=== PATIENT | female | born 1945 | race Caucasian/White ===

== ENCOUNTER → 2017-04-07 | Outpatient (CLI) | payer OTHER ==
[2017-04-07 15:42] LABS: BASO % 0.1 %; BASO ABS # 0.01 K/uL (0-0.2); COMPLETE YES; EOS % 0.3 %; IG% 0.1 %; LYMPH % 22.5 %; LYMPH ABS # 1.63 K/uL (1.2-3.4); MEAN CELL VOLUME 99.7 fL (80-100); MEAN CORPUSCULAR HEMOGLOBIN 34.1 pg (25-34); MEAN CORPUSCULAR HGB CONC 34.2 g/dl (32-36); MEAN PLATELET VOLUME 9.5 fL (7.4-10.4); MONO % 6.5 %; NEUT % 70.5 %; PLATELET COUNT 299 K/uL (130-400); RED BLOOD COUNT 3.81 M/uL (4.2-5.4); WHITE BLOOD COUNT 7.26 K/uL (4.8-10.8)
[2017-04-07 16:03] LABS: ALT/SGPT 35 U/L (12-78); AST/SGOT 45 U/L (15-37); BLOOD UREA NITROGEN 17 mg/dl (7-18); BUN/CREATININE RATIO 15.8 (10-20); CALCIUM 7.9 mg/dl (8.5-10.1); CARBON DIOXIDE 24 mmol/L (21-32); CHLORIDE 111 mmol/L (98-107); GLUCOSE 90 mg/dl (70-99); SODIUM 144 mmol/L (136-145)
[2017-04-07 16:06] LABS: CHOLESTEROL 188 mg/dl (0-200); CHOLESTEROL/HDL RATIO 2.7; HDL CHOLESTEROL 70 mg/dl; LDL CHOLESTEROL CALCULATED 82 mg/dl; TRIGLYCERIDES 180 mg/dl (0-150); VERY LOW DENSITY LIPOPROT CALC 36 mg/dl
== END | disposition home or self-care (01) ==
LOC: C.LAB1850 14:37
PROVIDERS: ATTEND Internal Medicine
DX: E78.00 Pure hypercholesterolemia, unspecified (principal)

== ENCOUNTER 2018-02-02 09:13 | Emergency (ER) | payer OTHER ==
[~2018-02-02] VITALS: Ht 160 cm; Wt 47.5 kg
[2018-02-02 09:21] VITALS: TEMP 36.7; Ht 160 cm; Wt 47.5 kg
--- NOTE | 2018-02-02 10:22 | DIAGNOSTIC IMAGING REPORT ---
L FOOT MIN 3 VIEWS ROUTINE CLINICAL HISTORY: Bilateral foot pain and swelling. COMPARISON: None FINDINGS: Alignment of the left foot is anatomic. No acute fracture is identified. There is minimal posterior calcaneal spurring. Tarsometatarsal joints are intact. 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 No erosions are identified. IMPRESSION: 1. No acute fracture or dislocation within the left foot. 2. 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 Electronically signed by: Chin Matos M.D. 02/02/2018 10:21 AM Dictated Date/Time: 02/02/2018 10:19 AM
--- NOTE | 2018-02-02 10:23 | DIAGNOSTIC IMAGING REPORT ---
R FOOT MIN 3 VIEWS ROUTINE CLINICAL HISTORY: Bilateral foot pain and swelling. COMPARISON: None FINDINGS: Alignment of the right foot is anatomic. Tarsometatarsal joints are intact. No fracture or suspicious lesion is present. There is mild osteoarthritis within multiple articulations of the right foot, most pronounced the right first metatarsophalangeal joint. IMPRESSION: 1. No acute fracture or dislocation within the right foot. 2. Mild osteoarthritis within multiple articulations of the right foot. Electronically signed by: Chin Matos M.D. 02/02/2018 10:22 AM Dictated Date/Time: 02/02/2018 10:21 AM
[2018-02-02 10:31] LABS: BASO % 0.2 %; BASO ABS # 0.02 K/uL (0-0.2); EOS % 0.6 %; EOS ABS # 0.05 K/uL (0-0.5); HEMATOCRIT 38.1 % (37-47); HEMOGLOBIN 13.4 g/dL (12.0-16.0); IG# 0.02 K/uL (0.00-0.02); LYMPH % 15.9 %; LYMPH ABS # 1.31 K/uL (1.2-3.4); MEAN CORPUSCULAR HEMOGLOBIN 36.2 pg (25-34); MEAN CORPUSCULAR HGB CONC 35.2 g/dl (32-36); MEAN PLATELET VOLUME 9.3 fL (7.4-10.4); MONO ABS # 0.58 K/uL (0.11-0.59); NEUT % 76.1 %; NEUT ABS # 6.28 K/uL (1.4-6.5); PLATELET COUNT 283 K/uL (130-400); RED CELL DISTRIBUTION WIDTH CV 13.4 % (11.5-14.5); RED CELL DISTRIBUTION WIDTH SD 50.6 fL (36.4-46.3); WHITE BLOOD COUNT 8.26 K/uL (4.8-10.8)
[2018-02-02 10:52] LABS: ALBUMIN 3.3 gm/dl (3.4-5.0); CALCIUM 7.8 mg/dl (8.5-10.1); CREATININE 0.94 mg/dl (0.60-1.20); POTASSIUM 4.2 mmol/L (3.5-5.1); TOTAL PROTEIN 6.8 gm/dl (6.4-8.2)
[2018-02-02] MEDS ORDERED: LZL/125 PO (10:57)
[2018-02-02] MEDS ORDERED: LISI40TA PO (10:57)
[2018-02-02] MEDS ORDERED: LSN20 PO (10:59)
[2018-02-02] MEDS ORDERED: SIMV40TA2 PO (10:59)
--- NOTE | 2018-02-02 11:08 | EMERGENCY ROOM VISIT NOTE ---
History Report prepared by Andrew: Gage Riley Under the Supervision of: Dr. Roxy Cardoso D.O. First contact with patient: 09:27 Chief Complaint: FOOT PAIN Stated Complaint: LEFT FOOT PAIN History of Present Illness The patient is a 72 year old female who presents to the Emergency Room with complaints of worsening right left foot pain and swelling beginning yesterday. She states that her right foot was painful and swollen two days ago, but resolved with ice 1 day later. She states that she noticed her symptoms at the end of the day each night. The patient has similar symptoms in the past associated with increased activity. She notes that she has been on her feet a lot recently. She denies any fevers, chills, joint pain, numbness, or tingling. The patient denies medication changes. She reports feeling a bit nauseous. Her brother has a history of gout. The patient denies recent travel. She denies change in shoes. She denies new soaps or detergents. The patient denies recent trauma or injury. She has no known history of Lyme disease. Source of History: patient Onset: Yesterday Position: foot (left) Quality: other (pain and swelling) Timing: worsening Associated Symptoms: + nausea, No fevers, No chills, No numbness Note: Negative: tingling, joint pain. Review of Systems See HPI for pertinent positives & negatives. A total of 10 systems reviewed and were otherwise negative. Past Medical & Surgical Medical Problems: (1) HTN (hypertension) (2) Ovarian cancer Family History No pertinent family history stated. Social History Smoking Status: Current Every Day Smoker Marital Status: Occupation Status: employed Current/Historical Medications Scheduled Cephalexin Monohydrate (Keflex), 500 MG PO QID Indapamide (Lozol), 1.25 MG PO DAILY Lisinopril (Lisinopril), 20 MG PO DAILY Simvastatin (Zocor), 40 MG PO QPM Allergies Coded Allergies: Erythromycin (Verified Allergy, Unknown, 02/02/18) Aspirin (Verified Adverse Reaction, Mild, STOMACH UPSET, 02/02/18) Physical Exam Vital Signs Date Time Temp Pulse Resp B/P (MAP) Pulse Ox O2 Delivery O2 Flow Rate FiO2 02/02/18 12:06 96 20 136/81 99 02/02/18 09:21 36.7 87 18 160/97 100 Room Air Physical Exam GENERAL: alert, well appearing, well nourished, no distress, non-toxic EYE EXAM: normal conjunctiva, PERRL and EOM's grossly intact OROPHARYNX: no exudate, no erythema, lips, buccal mucosa, and tongue normal and mucous membranes are moist NECK: supple, no nuchal rigidity, no adenopathy, non-tender LUNGS: Clear to auscultation. Normal chest wall mechanics HEART: no murmurs, S1 normal and S2 normal ABDOMEN: abdomen soft, non-tender, normo-active bowel sounds, no masses, no rebound or guarding. BACK: Back is symmetrical on inspection and there is no deformity, no midline tenderness, no CVA tenderness. SKIN: no rashes and no bruising UPPER EXTREMITIES: upper extremities are grossly normal. LOWER EXTREMITIES: mildly edematous and erythematous left foot/toes, predominantly dorsal. Normal pulses. No ecchymosis. No deformities. No joint effusions. Right foot appears normal. Rest of lower extremities appear normal. NEURO EXAM: Normal sensorium, cranial nerves II-XII grossly intact, normal speech, no gross weakness of arms, no gross weakness of legs. Medical Decision & Procedures ER Provider Diagnostic Interpretation: Radiology results have been interpreted by the radiologist and reviewed by me. L FOOT MIN 3 VIEWS ROUTINE FINDINGS: Alignment of the left foot is anatomic. No acute fracture is identified. There is minimal posterior calcaneal spurring. Tarsometatarsal joints are intact. 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 No erosions are identified. IMPRESSION: 1. No acute fracture or dislocation within the left foot. 2. 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 Electronically signed by: Chin Matos M.D. 02/02/2018 10:21 AM R FOOT MIN 3 VIEWS ROUTINE FINDINGS: Alignment of the right foot is anatomic. Tarsometatarsal joints are intact. No fracture or suspicious lesion is present. There is mild osteoarthritis within multiple articulations of the right foot, most pronounced the right first metatarsophalangeal joint. IMPRESSION: 1. No acute fracture or dislocation within the right foot. 2. Mild osteoarthritis within multiple articulations of the right foot. Electronically signed by: Chin Matos M.D. 02/02/2018 10:22 AM Laboratory Results 02/02/18 10:20 Red Blood Count 3.70, Mean Corpuscular Volume 103.0, Mean Corpuscular Hemoglobin 36.2, Mean Corpuscular Hemoglobin Concent 35.2, Mean Platelet Volume 9.3, Neutrophils (%) (Auto) 76.1, Lymphocytes (%) (Auto) 15.9, Monocytes (%) ( Auto) 7.0, Eosinophils (%) (Auto) 0.6, Basophils (%) (Auto) 0.2, Neutrophils # ( Auto) 6.28, Lymphocytes # (Auto) 1.31, Monocytes # (Auto) 0.58, Eosinophils # ( Auto) 0.05, Basophils # (Auto) 0.02 02/02/18 10:20 Test 02/02/18 10:20 White Blood Count 8.26 K/uL (4.8-10.8) Red Blood Count 3.70 M/uL (4.2-5.4) Hemoglobin 13.4 g/dL (12.0-16.0) Hematocrit 38.1 % (37-47) Mean Corpuscular Volume 103.0 fL (80-100) Mean Corpuscular Hemoglobin 36.2 pg (25-34) Mean Corpuscular Hemoglobin Concent 35.2 g/dl (32-36) Platelet Count 283 K/uL (130-400) Mean Platelet Volume 9.3 fL (7.4-10.4) Neutrophils (%) (Auto) 76.1 % Lymphocytes (%) (Auto) 15.9 % Monocytes (%) (Auto) 7.0 % Eosinophils (%) (Auto) 0.6 % Basophils (%) (Auto) 0.2 % Neutrophils # (Auto) 6.28 K/uL (1.4-6.5) Lymphocytes # (Auto) 1.31 K/uL (1.2-3.4) Monocytes # (Auto) 0.58 K/uL (0.11-0.59) Eosinophils # (Auto) 0.05 K/uL (0-0.5) Basophils # (Auto) 0.02 K/uL (0-0.2) RDW Standard Deviation 50.6 fL (36.4-46.3) RDW Coefficient of Variation 13.4 % (11.5-14.5) Immature Granulocyte % (Auto) 0.2 % Immature Granulocyte # (Auto) 0.02 K/uL (0.00-0.02) Erythrocyte Sedimentation Rate 9 mm/hr (0-21) Anion Gap 7.0 mmol/L (3-11) Est Creatinine Clear Calc Drug Dose 41.8 ml/min Estimated GFR () 71.2 Estimated GFR (Non- 61.5 BUN/Creatinine Ratio 17.0 (10-20) Uric Acid 8.0 mg/dl (2.6-7.2) Calcium Level 7.8 mg/dl (8.5-10.1) Total Bilirubin 0.5 mg/dl (0.2-1) Aspartate Amino Transf (AST/SGOT) 42 U/L (15-37) Alanine Aminotransferase (ALT/SGPT) 38 U/L (12-78) Alkaline Phosphatase 118 U/L (45-117) Total Protein 6.8 gm/dl (6.4-8.2) Albumin 3.3 gm/dl (3.4-5.0) Globulin 3.5 gm/dl (2.5-4.0) Albumin/Globulin Ratio 0.9 (0.9-2) Lyme Disease IgG Antibody NEG (NEG) Lyme Disease IgM Antibody NEG (NEG) Laboratory results per my review. ED Course 09: The patient was evaluated in room A9B. A complete history and physical exam was performed. 1100: Upon reevaluation, the patient is feeling better. I discussed the findings and the treatment plan with the patient. She verbalizes agreement and understanding. The patient was discharged home. Medical Decision Differential diagnosis: Etiologies such as gout, fracture, dislocation, neurovascular compromise, compartment syndrome, soft tissue injury, as well as others were entertained. Discussed with patient atypical nature of presentation given recent involvement of the opposite foot similar to pattern today. No leukocytosis or elevated sed rate. Mild elevation of patient's uric acid however no prior history of gout. Renal function otherwise normal. Appearance of dorsal left foot not consistent with cellulitis, area outlined as a precaution, and patient given prescription for Keflex as a precaution in case condition worsen or she develop fevers. Patient declined pain medication or gout medication. Discussed dietary modification in lieu of consideration of gout. Discussed symptoms to watch and return for, need for close follow-up, use of anti-inflammatories for pain and as a treatment for gout. Discussed adequate hydration with water, avoidance of taking anti-inflammatories on an empty stomach. Patient with no other systemic symptoms. Patient well-appearing at time of discharge, comfortable with plan, all questions answered at bedside. Medication Reconcilliation Current Medication List: was personally reviewed by me Blood Pressure Screening Patient's blood pressure: Elevated blood pressure Blood pressure disposition: Referred to PCP Impression Primary Impression: Foot pain Scribe Attestation The scribe's documentation has been prepared under my direction and personally reviewed by me in its entirety. I confirm that the note above accurately reflects all work, treatment, procedures, and medical decision making performed by me. Departure Information Dispostion Home / Self-Care Prescriptions Cephalexin Monohydrate (Keflex) 500 Mg Cap 500 MG PO QID, #28 CAP Prov: Roxy Cardoso, DO 02/02/18 Referrals Horacio Parham M.D. (PCP) Patient Instructions My [facility] Additional Instructions Please have your family doctor recheck your feet by the end of the week. You may use anti-inflammatories to help with pain and swelling, these also help with this is the evolution of gout. Do not take anti-inflammatories on an empty stomach and make sure you are drinking plenty of water. Please continue your other regular medications as prescribed. If you have increasing pain or swelling, worsening redness, redness streaking into the ankle or leg, develop fevers or chills, dizziness, nausea or vomiting, please return the emergency room. If you feel the area is not improved over the next 24 hours, please start the antibiotic. Please avoid foods which are rich or high fat. Please discuss possible gout with your regular doctor. Please try to elevate the leg at rest and avoid prolonged standing or strenuous activity until the area is improved. Problem Qualifiers Primary Impression: Foot pain Laterality: left Qualified Codes: M79.672 - Pain in left foot
[2018-02-02] MEDS ORDERED: CEPH500C PO (11:09)
[2018-02-02 12:06] VITALS: BP 136/81; PULSE 96; O2SAT 99
== END 2018-02-02 11:47 | disposition home or self-care (01) ==
LOC: C.EDB 09:14 → C.EDA 11:47
DX: M79.672 Pain in left foot (principal); M79.671 Pain in right foot; R60.0 Localized edema; I10 Essential (primary) hypertension; Z85.43 Personal history of malignant neoplasm of ovary; F17.200 Nicotine dependence, unspecified, uncomplicated; Z88.1 Allergy status to other antibiotic agents; Z88.6 Allergy status to analgesic agent

== ENCOUNTER 2023-06-16 20:53 | Observation (INO) ==
[2023-06-16] MEDS ORDERED: ENOXAPARIN INJ 30 MG/0.3 ML SYR SQ SCH (21:00)
[2023-06-16] MEDS ORDERED: diphenhydrAMINE 50 MG/ML VIAL IV STA (21:05)
[2023-06-16] MEDS ORDERED: FAMOTIDINE 20MG IV PUSH 20 MG/5 ML SYR IV STA (21:05)
[2023-06-16] MEDS ORDERED: SODIUM CHLORIDE 0.9% 1000ML 500 ML IV ONE (21:05)
[2023-06-16] MEDS ORDERED: methylPREDNISolone 125 MG/2 ML VIAL IV STA (21:05)
[2023-06-16] MEDS ORDERED: SODIUM CHLORIDE 0.9% 250 ML IV PRN (21:08)
[2023-06-16] MEDS ORDERED: TRANEXAMIC ACID / 0.7% NACL 1,000 MG/100 ML BAG IV STA (21:09)
[2023-06-16] MEDS ORDERED: EPINEPHrine INJ 1 MG/ML AMP IM STA (21:12)
[2023-06-16 21:26] LABS: Basophils # (auto) 0.02 K/uL (0-0.2); Basophils % (auto) 0.3 %; Eosinophils # (auto) 0.09 K/uL (0-0.50); Eosinophils % (auto) 1.4 %; Hematocrit (blood only) 36.8 % (37.0-47.0); Hemoglobin 12.3 g/dl (12.0-16.0); Immature Granulocytes # (auto) 0.01 K/uL (0.01-0.20); Immature Granulocytes % (auto) 0.2 %; Lymphocytes # (auto) 2.75 K/uL (1.2-3.4); Lymphocytes % (auto) 41.7 %; Mean Corpuscular Hemoglobin 32.7 pg (25.0-34.0); Mean Corpuscular Hgb Conc 33.4 g/dL (32.0-36.0); Mean Corpuscular Volume 97.9 fL (80.0-100.0); Mean Platelet Volume 8.9 fL (9.4-12.4); Monocytes # (auto) 0.54 K/uL (0.11-0.59); Monocytes % (auto) 8.2 %; Neutrophils # (auto) 3.18 K/uL (1.40-6.50); Neutrophils % (auto) 48.2 %; Platelet Count 315 K/uL (130-400); RDW Standard Deviation 46.3 fL (36.4-46.3); Red Blood Count 3.76 M/uL (4.20-5.40); White Blood Count 6.59 K/ul (4.8-10.8)
--- NOTE | 2023-06-16 21:39 | Anesthesiology Progress Note ---
Date of Service June 16, 2023 Assessment & Plan (1) Edema of face: Present on Admission?: Yes Plan spoke with icu and they will be admitting her over night - agree with watching for now as she is not in distress and it does appear to be lessening. will follow along. Admission and Anticipated Discharge Date Admission Date: 06/16/23 Subjective asked to see patient in ED with facial swelling - able to talk but slurred - breathing well, O2 sat 100% - did receive steroid and antihistamine and IM epi and is getting TXA and will be getting FFP - son believes her face and neck looks less full - she feels tired and chilly but breathing fine. they say she has had multiple episodes tho not this bad and have always been self limiting. Review of Systems Review of Systems: All systems reviewed & are unremarkable except as noted in Subjective Physical Exam Vital Signs: Last Vital Signs Temp 36.4 C L 06/16/23 20:56 Pulse 97 H 06/16/23 21:13 Resp 20 06/16/23 20:56 BP 227/129 H 06/16/23 20:56 Pulse Ox 99 06/16/23 20:56 O2 Del Method Room Air 06/16/23 20:56 Constitutional: no acute distress ENMT: Nose: + facial edema Mouth: + tongue abnormality Mallampati Class: III (due to tongue swellingright more than left) Neck: + anterior neck swelling (much more to right than left - appears slightly less than when first seen) Respiratory: normal respiratory effort Cardiovascular: Rate/Rhythm: regular rate and regular rhythm
--- NOTE | 2023-06-16 21:46 | Emergency Department Note ---
History of Present Illness General Chief complaint: Allergic Reaction Stated complaint: SWOLLEN NECK, ?ALLERGIC REACTION Time Seen by Provider: 06/16/23 21:00 History of Present Illness Provider complaint: Lip swelling neck swelling Onset (ago): hour(s) 2 78-year-old female presents emergency department with a lip and neck swelling. Patient states her symptoms began 2 hours ago after eating [place] food. She reports no difficulty breathing. No difficulty swallowing. Family member at bedside states this happens every month or 2 to her and usually resolves. No chest pain or difficulty breathing. 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 Surgical History H/O hysterectomy with oophorectomy ovarian cancer with removal of tumor (stage 4) Family History Father Heart disease Mother Stroke Other Allergies No family history of bleeding disorder Denies family history of Hearing loss Cancer Asthma Social History Smoking Status: Current every day smoker Tobacco Type: Cigarettes Age Started Using Tobacco: 20; packs per day: 1; Cigarettes Per Day: 4; Do You Dip or Chew Tobacco: No; Hx Alcohol Use: Yes Alcohol type: wine Alcohol Intake Frequency: 4 or More x per/Week Hx Substance Use: No Preferred Language: Sudanese Communication Ability: Effective Mail Order Sorter Required: No Beliefs That Will Affect Care: None marital status: / Current Living Situation: Family current occupational status: employed 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 How many Children do You have: 2 Other Information That Helps Us Care for You: No Feels Safe at Home: Yes Safety Concerns: Feels Safe At This Time Assistive Devices: Glasses and Hearing Aid - Right Physical Exam Vital Signs Vital Signs - 24 hr 06/16/23 20:56 06/16/23 21:13 06/16/23 21:40 Temperature 36.4 C L Temperature Source Temporal Artery Scan Pulse Rate 94 H 97 H Pulse Rate [Finger] 93 H Pulse Rate from SpO2 Sensor Pulse Rhythm Regular Pulse Strength Normal Respiratory Rate 20 22 Respiratory Effort / Characteristics Non-Labored Spontaneous Respiratory Depth Normal Blood Pressure 227/129 H Blood Pressure [Right Arm] 215/116 H Blood Pressure Mean 161 Blood Pressure Mean [Right Arm] 149 Pulse Oximetry 99 100 Oxygen Delivery Method Room Air Room Air Sepsis Recent Fever Within 48 Hours No Sepsis New/Unexplained Change in Mental Status N/A Sepsis Action Taken by Nursing No Action Required 06/16/23 21:50 06/16/23 21:30 06/16/23 21:20 Temperature Temperature Source Pulse Rate 97 H Pulse Rate [Finger] 91 H 94 H Pulse Rate from SpO2 Sensor Pulse Rhythm Pulse Strength Respiratory Rate 20 18 18 Respiratory Effort / Characteristics Respiratory Depth Blood Pressure 205/111 H Blood Pressure [Right Arm] 202/112 H 225/134 H Blood Pressure Mean 142 Blood Pressure Mean [Right Arm] 142 164 Pulse Oximetry 99 99 100 Oxygen Delivery Method Room Air Room Air Sepsis Recent Fever Within 48 Hours Sepsis New/Unexplained Change in Mental Status Sepsis Action Taken by Nursing 06/16/23 21:50 06/16/23 22:00 06/16/23 22:10 Temperature 36.8 C Temperature Source Oral Pulse Rate Pulse Rate [Finger] 90 93 H 88 Pulse Rate from SpO2 Sensor Pulse Rhythm Pulse Strength Respiratory Rate 16 16 16 Respiratory Effort / Characteristics Respiratory Depth Blood Pressure Blood Pressure [Right Arm] 205/111 H 195/101 H 181/110 H Blood Pressure Mean Blood Pressure Mean [Right Arm] 142 132 133 Pulse Oximetry 100 100 99 Oxygen Delivery Method Room Air Room Air Room Air Sepsis Recent Fever Within 48 Hours Sepsis New/Unexplained Change in Mental Status Sepsis Action Taken by Nursing 06/16/23 21:14 06/16/23 21:21 06/16/23 21:21 Temperature Temperature Source Pulse Rate 97 H 97 H Pulse Rate [Finger] Pulse Rate from SpO2 Sensor 100 H Pulse Rhythm Pulse Strength Respiratory Rate 18 17 Respiratory Effort / Characteristics Respiratory Depth Blood Pressure 225/134 H Blood Pressure [Right Arm] Blood Pressure Mean 164 Blood Pressure Mean [Right Arm] Pulse Oximetry 100 Oxygen Delivery Method Sepsis Recent Fever Within 48 Hours Sepsis New/Unexplained Change in Mental Status Sepsis Action Taken by Nursing 06/16/23 21:30 06/16/23 21:30 06/16/23 21:40 Temperature Temperature Source Pulse Rate 93 H Pulse Rate [Finger] Pulse Rate from SpO2 Sensor 92 H Pulse Rhythm Pulse Strength Respiratory Rate 17 Respiratory Effort / Characteristics Respiratory Depth Blood Pressure 202/112 H 215/116 H Blood Pressure [Right Arm] Blood Pressure Mean 142 149 Blood Pressure Mean [Right Arm] Pulse Oximetry 100 Oxygen Delivery Method Sepsis Recent Fever Within 48 Hours Sepsis New/Unexplained Change in Mental Status Sepsis Action Taken by Nursing 06/16/23 21:40 06/16/23 21:50 06/16/23 21:50 Temperature Temperature Source Pulse Rate 98 H 90 Pulse Rate [Finger] Pulse Rate from SpO2 Sensor 96 H 92 H Pulse Rhythm Pulse Strength Respiratory Rate 20 15 Respiratory Effort / Characteristics Respiratory Depth Blood Pressure 205/111 H Blood Pressure [Right Arm] Blood Pressure Mean 142 Blood Pressure Mean [Right Arm] Pulse Oximetry 100 100 Oxygen Delivery Method Sepsis Recent Fever Within 48 Hours Sepsis New/Unexplained Change in Mental Status Sepsis Action Taken by Nursing 06/16/23 22:00 06/16/23 22:00 06/16/23 22:10 Temperature Temperature Source Pulse Rate 95 H Pulse Rate [Finger] Pulse Rate from SpO2 Sensor 93 H Pulse Rhythm Pulse Strength Respiratory Rate 14 Respiratory Effort / Characteristics Respiratory Depth Blood Pressure 195/101 H 181/110 H Blood Pressure [Right Arm] Blood Pressure Mean 132 133 Blood Pressure Mean [Right Arm] Pulse Oximetry 99 Oxygen Delivery Method Sepsis Recent Fever Within 48 Hours Sepsis New/Unexplained Change in Mental Status Sepsis Action Taken by Nursing 06/16/23 22:10 Temperature Temperature Source Pulse Rate 87 Pulse Rate [Finger] Pulse Rate from SpO2 Sensor 88 Pulse Rhythm Pulse Strength Respiratory Rate 13 Respiratory Effort / Characteristics Respiratory Depth Blood Pressure Blood Pressure [Right Arm] Blood Pressure Mean Blood Pressure Mean [Right Arm] Pulse Oximetry 99 Oxygen Delivery Method Sepsis Recent Fever Within 48 Hours Sepsis New/Unexplained Change in Mental Status Sepsis Action Taken by Nursing Physical Exam HENT: Exam performed. -Head: Normocephalic and atraumatic. -Mouth/Throat: Right lower lip swelling. Right tongue swelling. Submental swelling. EYES: Conjunctivae and EOM are normal. Pupils are equal, round, and reactive to light. Right eye exhibits no discharge. Left eye exhibits no discharge. No scleral icterus. NECK: Fullness of the right neck. CV: Normal rate, regular rhythm, normal heart sounds and intact distal pulses. There is no peripheral edema. Palpable radial pulses bue. PULM/CHEST: Effort normal and breath sounds normal. No respiratory distress. No stridor. She has no wheezes. She has no rales. Course Course 2100: The patient was evaluated in room B7. A complete history and physical exam was performed Cardiac monitoring: An order was placed for continuous cardiac monitoring. The monitor shows a rate of 90 with sinus rhythm interpreted by me Concern for angioedema given the patient's right-sided tongue lip and neck swelling. Less concern for allergic reaction given no rash or hives. No stridor or wheezing. Patient will be moved to resuscitation bay. We will attempt to treat the patient with Solu-Medrol 125 mg IV, Pepcid 20 mg IV, Benadryl 50 mg IV, TXA 1 g. Patient will be moved to resuscitation bay.We will contact anesthesia for possible earlier intubation. FFP 2 units will also be ordered for the patient. 2107: Spoke with Dr. Kaye anesthesia who states he will be down to evaluate the patient. 2111: Patient states it feels like her throat is swelling. Patient will be given epinephrine 0.3 mg IM in case there is any component of allergic reaction. 2127: Dr. Kaye at bedside. Lip swelling has improved. 2137: Swelling of the neck and lip have improved. There is still swelling of her tongue. 7: Patient will be admitted to the ICU. [facility], Dr. Vargas Castillo at bedside. Patient is improving. We will hold off on intubation at this time. 2207: FFP hanging tongue swelling is improving. 5: Vital signs stable. Tongue swelling improving. Administered Medications Enoxaparin Sodium (Enoxaparin Inj 30 Mg/0.3 Ml Syr) 30 mg SQ Q24H VANDANA Stop: 07/16/23 20:59 Last Admin: 06/17/23 00:30 Dose: 30 mg Documented By: VIRGEN Lactated Ringer's (Lr) 1,000 mls @ 80 mls/hr IV .[id number] VANDANA Stop: 06/18/23 00:27 Last Admin: 06/17/23 00:30 Dose: 80 mls/hr Documented By: VIRGEN Discontinued Medications Diphenhydramine HCl (Diphenhydramine 50 Mg/Ml Vial) 50 mg IV NOW STA Stop: 06/16/23 21:06 Last Admin: 06/16/23 21:10 Dose: 50 mg Documented By: MAURISIO Epinephrine HCl (Epinephrine Inj 1 Mg/Ml Amp) 0.3 mg IM NOW STA Stop: 06/16/23 21:13 Last Admin: 06/16/23 21:16 Dose: 0.3 mg Documented By: MAURISIO Sodium Chloride (Nss 1000ml) 500 mls @ 999 mls/hr IV .Q31M ONE Stop: 06/16/23 21:35 Last Admin: 06/16/23 21:10 Dose: 999 mls/hr Documented By: MAURISIO Famotidine (Pepcid 20mg Iv Push) 20 mg in 5 mls @ 2.5 mls/min IV NOW STA Stop: 06/16/23 21:06 Last Admin: 06/16/23 21:09 Dose: 2.5 mls/min Documented By: MAURISIO Tranexamic Acid (Tranexamic Acid / 0.7% Nacl) 1,000 mg in 100 mls @ 600 mls/hr IV NOW STA Stop: 06/16/23 21:18 Last Infusion: 06/16/23 21:31 Dose: 0 mls/hr Documented By: Admin: 06/16/23 21:16 Dose: 600 mls/hr Documented By: MAURISIO Methylprednisolone (Methylprednisolone 125 Mg/2 Ml Vial) 125 mg IV NOW STA Stop: 06/16/23 21:06 Last Admin: 06/16/23 21:10 Dose: 125 mg Documented By: MAURISIO Critical Care Time Critical Care Time: Yes Total Critical Care Time: 100 I have personally spent greater than 100 minutes of critical care time in the direct management of this patient. This includes bedside care, interpretation of diagnostic studies, and testing, discussion with consultants, patient, and family members, and other required patient management activities. This 100 minutes is in excess of all separately billable procedures. Medical Decision Making Laboratory Data Attestation: I reviewed the patient's lab results. 06/16/23 21:17 06/16/23 21:17 Lab Results 06/16/23 06/16/23 06/16/23 Range/Units 21:17 21:17 21:17 WBC 6.59 (4.8-10.8) K/ul RBC 3.76 L (4.20-5.40) M/uL Hgb 12.3 (12.0-16.0) g/dl Hct 36.8 L (37.0-47.0) % MCV 97.9 (80.0-100.0) fL MCH 32.7 (25.0-34.0) pg MCHC 33.4 (32.0-36.0) g/dL RDW Std Deviation 46.3 (36.4-46.3) fL RDW Coeff of Meena 13.0 (11.5-14.5) % Plt Count 315 (130-400) K/uL MPV 8.9 L (9.4-12.4) fL Immature Gran % (Auto) 0.2 % Neut % (Auto) 48.2 % Lymph % (Auto) 41.7 % [place] % (Auto) 8.2 % Eos % (Auto) 1.4 % Baso % (Auto) 0.3 % Neut # (Auto) 3.18 (1.40-6.50) K/uL Lymph # (Auto) 2.75 (1.2-3.4) K/uL [place] # (Auto) 0.54 (0.11-0.59) K/uL Eos # (Auto) 0.09 (0-0.50) K/uL Baso # (Auto) 0.02 (0-0.2) K/uL Immature Gran # (Auto) 0.01 (0.01-0.20) K/uL PT 10.1 (9.0-12.0) Seconds INR 0.9 (0.9-1.1) APTT 24.2 (21.0-31.0) Seconds PTT Ratio 0.9 Sodium (136-145) mmol/L Potassium (3.5-5.1) mmol/L Chloride (98-107) mmol/L Carbon Dioxide (21-32) mmol/L Anion Gap (3-11) BUN (6-23) mg/dl Creatinine (0.6-1.2) mg/dl Est Cr Clr Drug Dosing ml/min Est GFR ( Amer) ml/min Est GFR (Non-Af Amer) ml/min BUN/Creatinine Ratio (10-20) Glucose (70-99(Fasting)) mg/dl Calcium (8.6-10.3) mg/dl Blood Type O Positive Antibody Screen NEGATIVE 06/16/23 Range/Units 21:17 WBC (4.8-10.8) K/ul RBC (4.20-5.40) M/uL Hgb (12.0-16.0) g/dl Hct (37.0-47.0) % MCV (80.0-100.0) fL MCH (25.0-34.0) pg MCHC (32.0-36.0) g/dL RDW Std Deviation (36.4-46.3) fL RDW Coeff of Meena (11.5-14.5) % Plt Count (130-400) K/uL MPV (9.4-12.4) fL Immature Gran % (Auto) % Neut % (Auto) % Lymph % (Auto) % [place] % (Auto) % Eos % (Auto) % Baso % (Auto) % Neut # (Auto) (1.40-6.50) K/uL Lymph # (Auto) (1.2-3.4) K/uL [place] # (Auto) (0.11-0.59) K/uL Eos # (Auto) (0-0.50) K/uL Baso # (Auto) (0-0.2) K/uL Immature Gran # (Auto) (0.01-0.20) K/uL PT (9.0-12.0) Seconds INR (0.9-1.1) APTT (21.0-31.0) Seconds PTT Ratio Sodium 137 (136-145) mmol/L Potassium 4.0 (3.5-5.1) mmol/L Chloride 106 (98-107) mmol/L Carbon Dioxide 25 (21-32) mmol/L Anion Gap 6 (3-11) BUN 30 H (6-23) mg/dl Creatinine 1.19 (0.6-1.2) mg/dl Est Cr Clr Drug Dosing 29.1 ml/min Est GFR ( Amer) 51.4 ml/min Est GFR (Non-Af Amer) 44.3 ml/min BUN/Creatinine Ratio 25.2 H (10-20) Glucose 102 H (70-99(Fasting)) mg/dl Calcium 8.3 L (8.6-10.3) mg/dl Blood Type Antibody Screen MDM Narrative 2100: The patient was evaluated in room B7. A complete history and physical exam was performed Cardiac monitoring: An order was placed for continuous cardiac monitoring. The monitor shows a rate of 90 with sinus rhythm interpreted by me Concern for angioedema given the patient's right-sided tongue lip and neck swelling. Less concern for allergic reaction given no rash or hives. No stridor or wheezing. Patient will be moved to resuscitation bay. We will attempt to treat the patient with Solu-Medrol 125 mg IV, Pepcid 20 mg IV, Benadryl 50 mg IV, TXA 1 g. Patient will be moved to resuscitation bay.We will contact anesthesia for possible earlier intubation. FFP 2 units will also be ordered for the patient. 2107: Spoke with Dr. Kaye anesthesia who states he will be down to evaluate the patient. 2112: Patient states it feels like her throat is swelling. Patient will be given epinephrine 0.3 mg IM in case there is any component of allergic reaction. 8: Dr. Kaye at bedside. Lip swelling has improved. 2138: Swelling of the neck and lip have improved. There is still swelling of her tongue. 2147: Patient will be admitted to the ICU. [facility], Dr. Navarro, Dr. Kaye at bedside. Patient is improving. We will hold off on intubation at this time. 2208: FFP hanging tongue swelling is improving. 2245: Vital signs stable. Tongue swelling improving. Impression & Plan Angioedema Discharge Plan Visit Data Chief Complaint: Allergic Reaction Stated Complaint: SWOLLEN NECK, ?ALLERGIC REACTION ED Provider: Clement Atkinson Discharge Problem: Angioedema Patient Disposition: Admitted As Inpatient Discharge Instructions Interventions: ED Discharge Assessment Last Done: 06/16/23 22:55
[2023-06-16 21:47] LABS: BUN Creatinine Ratio 25.2 (10-20); Calcium 8.3 mg/dl (8.6-10.3); Creatinine Clr Calc Pharmacy 29.1 ml/min; Est GFR (African American) 51.4 ml/min; Est GFR (Non-African American) 44.3 ml/min
[2023-06-16 22:07] LABS: INR 0.9 (0.9-1.1); Partial Thromboplastin Ratio 0.9; Partial Thromboplastin Time 24.2 Seconds (21.0-31.0); Prothrombin Time 10.1 Seconds (9.0-12.0)
--- NOTE | 2023-06-16 22:24 | History & Physical Report ---
Date of Service June 16, 2023 Assessment & Plan (1) Edema of face: (2) Dyslipidemia: (3) HTN (hypertension): Plan #Angioedema - Angioedema in the setting of ACEi use most likely - presumed to be bradykinin- mediated rather than histamine-mediated due to absence of rash/hives, though difficult to say definitively as treatment was initiated to address both pathways simultaneously - hold Lisinopril - s/p TXA and FFP - s/p Solumedrol, Benadryl, Pepcid - continue Solumedrol 40mg daily - continue Benadryl 50mg Q6h - continue Pepcid 20mg Q6h - C4, C1q, C1 esterase inhibitor ordered, results pending #HTN - Hold Lisinopril - Hold Indapamide #HLD: - Hold simvastatin DVT Ppx: Lovenox 40mg daily Diet: NPO Dispo: ICU Full Code History of Present Illness Primary Care Provider: NO PCP Pt is a 78 year old female presenting with angioedema. Swelling of lips and tongue began about 40 minutes after patient ate Mexican food for dinner. Of note, patient denies history of food allergies. Also notes that she develops reactions like this from time to time, though is uncertain of inciting trigger. In the past, she has taken 1 benadryl whenever this happens, with subsequent re lief. Today, however, swelling persisted despite taking a benadryl at home. Denies shortness of breath. Denies difficulty swallowing. Denies rash or itchiness. No family history of similar symptoms. Patient is on Lisinopril but states that these reactions predate initiation of Lisinopril. ED Course: Patient given IV Solumedrol, Pepcid, Benadryl, and TXA + IM epinephrine FFP administratio started Allergies Allergy/AdvReac Type Severity Reaction Status Date / Time erythromycin base Allergy Unknown Nausea Verified 07/29/21 11:35 Home Medications Medication Instructions Recorded Confirmed Type simvastatin 40 mg tablet 40 mg PO HS #90 tabs 08/27/22 06/16/23 Rx indapamide 1.25 mg tablet 1.25 mg PO QAM #30 tabs 05/03/23 06/16/23 Rx lisinopril 20 mg tablet 40 mg PO DAILY #60 tabs 06/03/23 06/16/23 Rx Past Med/Surg History Medical History Alcohol abuse Edema of face Ovarian cancer Sensorineural hearing loss (SNHL) of left ear with restricted hearing of right ear Surgical History H/O hysterectomy with oophorectomy ovarian cancer with removal of tumor (stage 4) Family History Father Heart disease Mother Stroke Other Allergies No family history of bleeding disorder Denies family history of Hearing loss Cancer Asthma Social History Smoking Status: Current every day smoker Tobacco Type: Cigarettes Age Started Using Tobacco: 20; packs per day: 1; Cigarettes Per Day: 4; Do You Dip or Chew Tobacco: No; Hx Alcohol Use: Yes Alcohol type: wine Alcohol Intake Frequency: 4 or More x per/Week Hx Substance Use: No Preferred Language: Belarusian Communication Ability: Effective Outbound Sales Executive Required: No Beliefs That Will Affect Care: None marital status: / Current Living Situation: Family current occupational status: employed 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 How many Children do You have: 2 Other Information That Helps Us Care for You: No Feels Safe at Home: Yes Safety Concerns: Feels Safe At This Time Assistive Devices: Glasses and Hearing Aid - Right Review of Systems Review of Systems: All systems reviewed & are unremarkable except as noted in HPI & below Physical Exam Constitutional: WD/WN, vitals as above no acute distress ENMT: swelling of tongue R>L and palate Skin: no rashes, warm and dry Psychiatric: A+Ox3, euthymic affect Results & Data Results & Data Vital Signs (Past 12 Hours) Vital Signs Temp Pulse Pulse Resp BP BP Pulse Ox 06/16/23 21:50 97 H 20 205/111 H 99 06/16/23 21:40 93 H 22 215/116 H 100 06/16/23 21:13 97 H 06/16/23 20:56 36.4 C L 94 H 20 227/129 H 99 O2 Del Method 06/16/23 21:50 06/16/23 21:40 Room Air 06/16/23 21:13 06/16/23 20:56 Room Air Code Status & VTE Plan VTE Prophylaxis Plan VTE Prophylaxis will be ordered: Yes Supervising Physician Co-Signing Physician Notes Patient seen and examined, chart reviewed, case discussed with Dr. Lopez and I agree with the assessment and plan as documented above. In brief, patient is a 78yo female presenting with swelling of the lips and tongue that occurred appx 40 minutes after eating Mexican food for dinner - beef, broccoli and rice. No history of food allergies. She has had history of facial swelling in the past. She has been on Lisinopril longstanding with last dose increase in 2019. Took Benadryl at home prior to arrival without resolution of symptoms No abdominal complaints. In the ER patient with significant swelling of the tongue and airway She was administered epinephrine, TXA, FFP, Solumedrol, Pepcid and Benadryl On exam - patient is afebrile, hypertensive Skin - no rash HEENT - NC/AT, PERRL, MMM, unilateral swelling noted of tongue and lips R > L. Patient is speaking without difficulty. No stridor. No changes in voice Heart - +S1/S2, regular Lungs - CTA, no stridor Abd - +BS, soft, NT/ND Ext - no edema Labs and images reviewed Assessment/Plan 78yo female with angioedema. Swelling of right tongue and lips - now improving after care administered in ER. Possibly bradykinin induced - patient with history of the same. She is on Lisinopril as well. Improving. No airway compromise -Admit to MICU -Complement levels sent -Continue Pepcid 20mg IV q 6h, Benadryl 50mg IV q 6 and Solumedrol 40mg IV daily -Monitor airway -Hold SHAKIRA-inhibitor - would consider permanent discontinuation of this med -Remainder of plan as above Resident Activity Tracking Resident Involvement: Resident Care Provided Care Provided: Adult Hospital Medicine
--- NOTE | 2023-06-16 23:11 | Critical Care Consultation ---
Date of Consultation June 16, 2023 Assessment & Plan (1) Angioedema: (2) Sensorineural hearing loss (SNHL) of left ear with restricted hearing of right ear: (3) Current tobacco use: (4) Dyslipidemia: (5) HTN (hypertension): Plan Reason Critically Ill: 78 YOF presents to EMD for face and tongue swelling following eating bengali food- however this was 2 hours post eating and has happened multiple other times to her as well. Neuro - No acute needs CAM ICU: NEGATIVE - Continue with normal sleep and wake cycle - Follow for ETOH withdrawal Cardiac - HTN, HLD - Noted hypertensive currently- however following epinephrine administration - hold on further treatment at this time, if needed consider Cardene or BB - Hold SHAKIRA - Continue with indapamide as hemodynamics allow Respiratory - Angioedema of face, lips, and tongue - As this is recurrent, slowly progressing and appears to be unilateral (RT > LT), is not associated with wheels, flushing or urticaria appears more bradykinin related - Improvement noted following TXA and definitely noticed difference following FFP administration - As she received multimodal therapies- continue with supportive care- steroids and Benadryl and H2 roby- but likely able to stop these in morning - If symptoms rebound - will repeat TXA and FFP x1 - As improved will hold on C1 inhibitor therapy - Compliment C4, C1 inhibitor, C1q and C1 esterase- drawn following FFP and TXA administration GI - No acute needs RENAL/LYTES - No acute needs - No acute needs ENDO - No acute needs HEME - No acute needs ID - No concern for infectious etiology LINES/IV ACCESS - PIV Continue use of these lines DVT PROPHYLAXIS - SCDS, Lovenox 30 subq DISPO: ICU overnight for monitoring of airway and respiratory status I have personally spent 50 minutes of critical care time in the direct management of this patient. This is a life/limb threatening event. This includes time spent evaluating patient, direct bedside care, chart review, placing orders, interpretation of diagnostic studies, discussion with consultants, patient, and family members, as well as other required patient management activities. This time is exclusive of all separately billable procedures, and separate from and in addition to any other critical care service time. Thank you for allowing us to participate in the care of this patient. Please refer to my attending physician's documentation for any further recommendations. Supervising Physician Co-Signing Physician Notes Patient seen and examined. EMR reviewed. Discussed with critical care YULY and agree with assessment plan as noted. Please refer to my progress note from 06/17/2023 for additional details History of Present Illness Reason for Consultation: oral swelling- allergic reaction vs. angioedema Requesting Physician: Iris Navarro DO Attending Physician: Iris Navarro DO History of Present Illness 78 YOF with medical history of: HTN, Current Smoker, HLD, Anemia. Patient came to the EMD today for complaints of tongue swelling, facial itching, and lip swelling following about 2 hours after eating bengali food. However she reports that this has happened to her multiple times in the past, but never to this degree. She has not been able to identify a trigger by herself and has taken Benadryl with relief of symptoms normally. She reportedly was without hypoxia, difficulty breathing, or difficulty swallowing. She has been on SHAKIRA inhibitor of Lisinopril 40mg daily since 2020. In the EMD the patient was noted to have lip and neck swelling as well as her tongue, however reported that it appears mor unilateral tongue swelling of the right side. She had routine labs performed, was administered- 125 mg of Solumederol, 0.3 mg IM of Epinephrine, Famotidine 20mg IV, 50mg Benadryl, and 1GM TXA followed by 2 units of FFP. Anesthesia was consulted and was at bedside monitoring her upon my assessment. She was starting to improve by the time I saw her as well, and by the second visit to her bedside in the EMD following 1 FFP, she was markedly improved from previous with now decreased swelling of her tongue and neck back to normal, speech markedly improved. She has not been hypoxic or unable to talk, or swallow so this is also reassuring. Spoke with Hospital Medicine and asked for compliment and C1 esterase inhibitor labs be sent as well. Overall appears to be improving and will continue with monitoring in the ICU. Appreciate Anesthesia evaluation and Medicine assistance in workup. CODE: FULL Allergies Allergy/AdvReac Type Severity Reaction Status Date / Time erythromycin base Allergy Unknown Nausea Verified 07/29/21 11:35 Home Medications Medication Instructions Recorded Confirmed Type simvastatin 40 mg tablet 40 mg PO HS #90 tabs 08/27/22 06/16/23 Rx indapamide 1.25 mg tablet 1.25 mg PO QAM #30 tabs 05/03/23 06/16/23 Rx lisinopril 20 mg tablet 40 mg PO DAILY #60 tabs 06/03/23 06/16/23 Rx Patient History Medical History Alcohol abuse Edema of face Ovarian cancer Sensorineural hearing loss (SNHL) of left ear with restricted hearing of right ear Surgical History H/O hysterectomy with oophorectomy ovarian cancer with removal of tumor (stage 4) Family History Father Heart disease Mother Stroke Other Allergies No family history of bleeding disorder Denies family history of Hearing loss Cancer Asthma Social History Smoking Status: Current every day smoker Tobacco Type: Cigarettes Age Started Using Tobacco: 20; packs per day: 1; Cigarettes Per Day: 4; Do You Dip or Chew Tobacco: No; Hx Alcohol Use: Yes Alcohol type: wine Alcohol Intake Frequency: 4 or More x per/Week Hx Substance Use: No Preferred Language: Moldovan Communication Ability: Effective Scrap Wheeler Required: No Beliefs That Will Affect Care: None marital status: / Current Living Situation: Family current occupational status: employed current occupation: [employer] How many Children do You have: 2 Other Information That Helps Us Care for You: No Feels Safe at Home: Yes Safety Concerns: Feels Safe At This Time Assistive Devices: Glasses and Hearing Aid - Right Review of Systems Review of Systems: REVIEW OF SYSTEMS: Constitutional: No fever, sweats or chills Eyes: No diplopia, no worsening or blurred vision ENT: (+) unilateral hearing loss, tongue swelling, facial itching into shoulders, no trouble swallowing Respiratory: No cough, sputum, dyspnea at rest or on exertion Cardiovascular: No chest pain, tightness or palpitations Abdomen: No pain, nausea, vomiting, diarrhea or constipation Musculoskeletal: No joint pain, calf pain, swelling Neurologic: No weakness, numbness/tingling, or balance problems Psychiatric: No anxiety or depression Skin: No rash or itch Physical Exam Physical Exam: PHYSICAL EXAM: General: awake, alert, no apparent distress Head: Normocephalic, atraumatic ENT: PERRL, EOMI, Tongue initially with Mallampati III view and on reassessment Mallampati II with right >left tongue swelling, no stridor, no wheeze, and able to swallow, no fullness of submandibular noted Neuro: AAO x 3, speech slurred secondary to tongue swelling, strength intact bilaterally 5/5, sensation intact and equal all extremities and dermatomes, no pronator drift Chest: equal rise and fall of the chest, no accessory muscle use, no heaves or thrills, Clear to auscultation, on room air, Cardiac: Regular rate and rhythm, telemetry reviewed- NSR, skin warm dry, cap refill <3 seconds, peripheral pulses +2 no JVD, no murmur, no JVD, no edema GI: NABS x 4 quadrants, soft, nontender to palpation, no rebound, guarding or tenderness : Spontaneously voiding, no pain, no CVA tenderness, Extremities: Normal inspection, no peripheral edema or erythema, calfs nontender to palpation Psych: Normal mood and affect Skin: no rash or erythema Results & Data Results & Data Vital Signs (Past 12 Hours) Vital Signs Temp Pulse Pulse Resp BP BP Pulse Ox 06/16/23 22:50 93 H 20 179/104 H 97 06/16/23 22:41 82 18 169/99 H 97 06/16/23 22:20 92 H 16 178/98 H 100 06/16/23 22:10 88 16 181/110 H 99 06/16/23 22:00 93 H 16 195/101 H 100 06/16/23 21:50 36.8 C 90 16 205/111 H 100 06/16/23 21:20 94 H 18 225/134 H 100 06/16/23 21:30 91 H 18 202/112 H 99 06/16/23 22:33 36.9 C 85 16 177/95 H 98 06/16/23 22:26 88 18 178/98 H 98 06/16/23 21:50 97 H 20 205/111 H 99 06/16/23 21:40 93 H 22 215/116 H 100 06/16/23 21:13 97 H 06/16/23 20:56 36.4 C L 94 H 20 227/129 H 99 O2 Del Method 06/16/23 22:50 Room Air 06/16/23 22:41 Room Air 06/16/23 22:20 Room Air 06/16/23 22:10 Room Air 06/16/23 22:00 Room Air 06/16/23 21:50 Room Air 06/16/23 21:20 Room Air 06/16/23 21:30 Room Air 06/16/23 22:33 06/16/23 22:26 Room Air 06/16/23 21:50 06/16/23 21:40 Room Air 06/16/23 21:13 06/16/23 20:56 Room Air Laboratory Results Abnormal lab results 06/16/23 06/16/23 Range/Units 21:17 21:17 RBC 3.76 L (4.20-5.40) M/uL Hct 36.8 L (37.0-47.0) % MPV 8.9 L (9.4-12.4) fL BUN 30 H (6-23) mg/dl BUN/Creatinine Ratio 25.2 H (10-20) Glucose 102 H (70-99(Fasting)) mg/dl Calcium 8.3 L (8.6-10.3) mg/dl Medications Administered Home Medications simvastatin 40 mg tablet 40 mg PO HS #90 tabs 08/27/22 [Rx Confirmed 06/16/23] indapamide 1.25 mg tablet 1.25 mg PO QAM #30 tabs 05/03/23 [Rx Confirmed 06/16/23] lisinopril 20 mg tablet 40 mg PO DAILY #60 tabs 06/03/23 [Rx Confirmed 06/16/23] Active Medications Diphenhydramine HCl (Diphenhydramine 50 Mg/Ml Vial) 50 mg IV Q6H [facility] Stop: 07/17/23 02:59 Enoxaparin Sodium (Enoxaparin Inj 40 Mg/0.4 Ml Syr) 40 mg SQ Q24H [facility] Stop: 07/16/23 23:27 Famotidine 20 mg/ Syringe 5 mls @ 2.5 mls/min IV Q6H [facility] Stop: 07/17/23 02:59 Methylprednisolone 60 mg/ (Syringe) 0.96 mls @ 1.5 mls/min IV DAILY [facility] Stop: 07/17/23 08:59 Lactated Ringer's (Lr) 1,000 mls @ 80 mls/hr IV .[id number] [facility] Stop: 06/18/23 00:27 Miscellaneous (Icu Protocol For Hyperglycemia) 1 each N/A ACHS [facility] Stop: 06/19/23 07:29 ECG Additional Comments: obtain on arrival to ICU as last in system is from 2019 - NSR no ischemic changes or axis deviations Coding Level of Care Code 20997 CRITICAL CARE 1ST 30-74M Diagnoses Angioedema T78.3XXA Sensorineural hearing loss (SNHL) of left ear with restricted hearing of right ear H90.A22 Current tobacco use Z72.0 Dyslipidemia E78.5 HTN (hypertension) I10
[2023-06-16] MEDS ORDERED: LACTATED RINGER'S 1,000 ML IV SCH (23:28)
[2023-06-17] MEDS ORDERED: diphenhydrAMINE 50 MG/ML VIAL IV PRN (00:01)
[2023-06-17] MEDS ORDERED: TRANEXAMIC ACID / 0.7% NACL 1,000 MG/100 ML BAG IV PRN (00:03)
[2023-06-17] MEDS ORDERED: LABETALOL HCL IV 5 MG/ML 20ML IV PRN ×2 (00:26→03:05)
--- NOTE | 2023-06-17 00:55 | Billing Data ---
Date of Service June 16, 2023 Coding Level of Care Code 77723 INT INP/OBS CARE
[2023-06-17] MEDS ORDERED: diphenhydrAMINE 50 MG/ML VIAL IV SCH (03:00)
[2023-06-17] MEDS ORDERED: FAMOTIDINE 20 MG in SYRINGE 3 ML IV SCH (03:00)
[2023-06-17] MEDS ORDERED: hydrALAZINE HCL 20 MG/ML VIAL IV ONE (05:19)
[2023-06-17] MEDS ORDERED: ICU Protocol for HYPERglycemia SCH (07:30)
--- NOTE | 2023-06-17 07:42 | Hospitalist Progress Note ---
Date of Service June 17, 2023 Assessment & Plan (1) Angioedema: Plan: Angioedema - Angioedema in the setting of ACEi use most likely - presumed to be bradykinin- mediated rather than histamine-mediated due to absence of rash/hives, though difficult to say definitively as treatment was initiated to address both pathways simultaneously - hold Lisinopril - s/p TXA and FFP - s/p Solumedrol, Benadryl, Pepcid - continue Solumedrol 40mg daily - continue Benadryl 50mg Q6h - continue Pepcid 20mg Q6h - C4, C1q, C1 esterase inhibitor ordered, results pendin (2) HTN (hypertension): Plan: pt has seen pcp and cardiology, has concerns about b roby in notes, consider amlodipine (3) Dyslipidemia: Plan: chronic and stable, typically on simvistatin Plan DVT Ppx: Lovenox 40mg daily Full Code Admission and Anticipated Discharge Date Admission Date: June 16, 2023 Results & Data Results & Data Vital Signs (Past 12 Hours) Vital Signs Temp Pulse Pulse Resp BP BP Pulse Ox 06/17/23 07:18 76 06/17/23 06:30 80 22 98 06/17/23 06:30 177/128 H 06/17/23 06:15 80 24 99 06/17/23 06:15 187/88 H 06/17/23 06:00 84 27 H 98 06/17/23 06:00 182/106 H 06/17/23 05:45 78 21 99 06/17/23 05:45 179/97 H 06/17/23 05:42 79 20 98 06/17/23 05:42 177/105 H 06/17/23 05:30 73 23 98 06/17/23 05:30 185/99 H 06/17/23 05:18 187/106 H 06/17/23 05:18 74 17 98 06/17/23 05:15 76 19 98 06/17/23 05:15 159/123 H 06/17/23 05:14 195/101 H 06/17/23 05:14 86 18 98 06/17/23 05:00 83 23 98 06/17/23 05:00 183/117 H 06/17/23 04:00 80 198/107 H 06/17/23 04:57 76 21 96 06/17/23 04:57 193/108 H 06/17/23 04:45 75 25 H 98 06/17/23 04:30 98 H 22 94 06/17/23 04:30 165/128 H 06/17/23 04:15 76 19 97 06/17/23 04:00 77 16 98 06/17/23 04:00 198/107 H 06/17/23 03:45 80 20 99 06/17/23 03:30 79 18 98 06/17/23 03:30 194/111 H 06/17/23 03:15 87 22 96 06/17/23 04:00 98.1 F 06/17/23 03:41 85 194/111 H 06/17/23 01:30 76 180/119 H 06/17/23 03:00 77 13 99 06/17/23 03:00 194/105 H 06/17/23 02:30 94 H 20 98 06/17/23 02:30 195/97 H 06/17/23 02:00 83 23 97 06/17/23 02:00 195/107 H 06/17/23 01:41 94 H 16 97 06/17/23 01:41 180/119 H 06/17/23 01:30 77 20 97 06/17/23 01:00 77 18 97 06/17/23 01:00 194/107 H 06/17/23 00:43 194/108 H 06/17/23 00:43 79 15 99 06/17/23 00:26 196/104 H 06/17/23 00:26 76 17 97 06/17/23 00:00 80 15 98 06/17/23 00:00 189/113 H 06/17/23 00:00 97.9 F 06/17/23 00:00 90 06/17/23 00:53 83 194/108 H 06/16/23 23:39 189/106 H 06/16/23 23:39 85 23 06/16/23 23:17 195/103 H 06/16/23 23:17 91 H 19 06/16/23 23:00 84 19 97 06/16/23 23:00 184/109 H 06/16/23 22:50 85 17 97 06/16/23 22:50 179/104 H 06/16/23 22:40 169/99 H 06/16/23 22:40 88 18 96 06/16/23 22:30 90 20 98 06/16/23 22:30 177/95 H 06/16/23 22:20 91 H 15 99 06/16/23 22:20 178/98 H 06/16/23 22:10 87 13 99 06/16/23 22:10 181/110 H 06/16/23 22:00 95 H 14 99 06/16/23 22:00 195/101 H 06/16/23 21:50 90 15 100 06/16/23 21:50 205/111 H 06/16/23 21:40 98 H 20 100 06/16/23 21:40 215/116 H 06/16/23 21:30 93 H 17 100 06/16/23 21:30 202/112 H 06/16/23 21:21 97 H 17 100 06/16/23 21:21 225/134 H 06/16/23 21:14 97 H 18 06/16/23 23:29 97.9 F 90 22 195/103 H 98 06/16/23 22:50 93 H 20 179/104 H 97 06/16/23 22:41 82 18 169/99 H 97 06/16/23 22:20 92 H 16 178/98 H 100 06/16/23 22:10 88 16 181/110 H 99 06/16/23 22:00 93 H 16 195/101 H 100 06/16/23 21:50 98.2 F 90 16 205/111 H 100 06/16/23 21:20 94 H 18 225/134 H 100 06/16/23 21:30 91 H 18 202/112 H 99 06/16/23 22:33 98.4 F 85 16 177/95 H 98 06/16/23 22:26 88 18 178/98 H 98 06/16/23 21:50 97 H 20 205/111 H 99 06/16/23 21:40 93 H 22 215/116 H 100 06/16/23 21:13 97 H 06/16/23 20:56 97.5 F L 94 H 20 227/129 H 99 O2 Del Method 06/17/23 07:18 06/17/23 06:30 06/17/23 06:30 06/17/23 06:15 06/17/23 06:15 06/17/23 06:00 06/17/23 06:00 06/17/23 05:45 06/17/23 05:45 06/17/23 05:42 06/17/23 05:42 06/17/23 05:30 06/17/23 05:30 06/17/23 05:18 06/17/23 05:18 06/17/23 05:15 06/17/23 05:15 06/17/23 05:14 06/17/23 05:14 06/17/23 05:00 06/17/23 05:00 06/17/23 04:00 06/17/23 04:57 06/17/23 04:57 06/17/23 04:45 06/17/23 04:30 06/17/23 04:30 06/17/23 04:15 06/17/23 04:00 06/17/23 04:00 06/17/23 03:45 06/17/23 03:30 06/17/23 03:30 06/17/23 03:15 06/17/23 04:00 06/17/23 03:41 06/17/23 01:30 06/17/23 03:00 06/17/23 03:00 06/17/23 02:30 06/17/23 02:30 06/17/23 02:00 06/17/23 02:00 06/17/23 01:41 06/17/23 01:41 06/17/23 01:30 06/17/23 01:00 06/17/23 01:00 06/17/23 00:43 06/17/23 00:43 06/17/23 00:26 06/17/23 00:26 06/17/23 00:00 06/17/23 00:00 06/17/23 00:00 06/17/23 00:00 06/17/23 00:53 06/16/23 23:39 06/16/23 23:39 06/16/23 23:17 06/16/23 23:17 06/16/23 23:00 06/16/23 23:00 06/16/23 22:50 06/16/23 22:50 06/16/23 22:40 06/16/23 22:40 06/16/23 22:30 06/16/23 22:30 06/16/23 22:20 06/16/23 22:20 06/16/23 22:10 06/16/23 22:10 06/16/23 22:00 06/16/23 22:00 06/16/23 21:50 06/16/23 21:50 06/16/23 21:40 06/16/23 21:40 06/16/23 21:30 06/16/23 21:30 06/16/23 21:21 06/16/23 21:21 06/16/23 21:14 06/16/23 23:29 Room Air 06/16/23 22:50 Room Air 06/16/23 22:41 Room Air 06/16/23 22:20 Room Air 06/16/23 22:10 Room Air 06/16/23 22:00 Room Air 06/16/23 21:50 Room Air 06/16/23 21:20 Room Air 06/16/23 21:30 Room Air 06/16/23 22:33 06/16/23 22:26 Room Air 06/16/23 21:50 06/16/23 21:40 Room Air 06/16/23 21:13 06/16/23 20:56 Room Air PG Care Time/CCT Total # of Minutes Spent Total Time Spent with Patient: Total time spent is greater than 50% in coordination of care (as documented) at patient's floor/unit and/or counseling patient: Coding Diagnoses Angioedema T78.3XXA HTN (hypertension) I10 Dyslipidemia E78.5
--- NOTE | 2023-06-17 07:52 | Critical Care Progress Note ---
Date of Service June 17, 2023 Assessment & Plan (1) Angioedema: (2) Sensorineural hearing loss (SNHL) of left ear with restricted hearing of right ear: (3) Current tobacco use: (4) Dyslipidemia: (5) HTN (hypertension): Plan Impression: 78 YOF presents to [facility] for face and tongue swelling following eating mohawk food- however this was 2 hours post eating and has happened multiple other times to her as well. 24-hour events: The patient's tongue and lip swelling is completely resolved. She feels back to baseline. She is having no voice changes. No difficulty swallowing. She has not demonstrated any hemodynamic instability and is actually hypertensive. She received labetalol and hydralazine overnight. She is asking about when she can be dismissed from the hospital. Recommendations: Neuro -no current issues Cardiac -hypertensive. Holding SHAKIRA inhibitor although unclear if her current episodes are related to SHAKIRA inhibitor mediated angioedema or not. Arguing against this would be that she has had events antecedent to her ever taking an SHAKIRA inhibitor. She also has telangiectasias and evidence of dyshidrotic eczema suggestive of potential atopic disease. Will start her on Cardizem for blood pressure control. If this is ineffectual, adding hydralazine would be a consideration. Respiratory -angioedema, currently resolved. The rapid improvement may be more likely related to an allergy mediated process rather than a bradykinin process. Complements have been sent but were drawn after the patient received FFP so they may not be accurate. Will transition her Benadryl and prednisone to oral and would recommend treating for the next 3 to 5 days to prevent late phase recurrence. The patient should be discharged with an EpiPen and have outpatient allergy evaluation scheduled prior to leaving the hospital. GI - No acute needs. Advance diet as tolerated RENAL/LYTES - No acute needs - No acute needs ENDO - No acute needs HEME - No acute needs ID - No concern for infectious etiology LINES/IV ACCESS - PIV Continue use of these lines DVT PROPHYLAXIS - SCDS, Lovenox 30 subq Patient is significantly better at this point in time. She does not need ICU monitoring at this point in time and may be able to be dismissed from the hospital. Disposition will be deferred to the patient's primary admitting service. Critical care will sign off. Feel free to contact us with questions Admission and Anticipated Discharge Date Admission Date: June 16, 2023 Subjective Patient seen and examined. EMR reviewed. Discussed with critical care nurse at bedside as well as with patient in a multidisciplinary rounds. Patient feels like she is back to normal. This is her fourth or fifth episode of tongue and lip swelling. She states she did eat [place] food last night which she does not use regularly. She is unclear if she is ever had a reaction associated with [place] food in the past. She Review of Systems Review of Systems: All systems reviewed & are unremarkable except as noted in Subjective Physical Exam Constitutional: WD/WN, vitals as above Neck: trachea midline, no thyromegaly Respiratory: normal respiratory effort, lungs clear to auscultation Cardiovascular: RRR, no murmur, no edema Gastrointestinal (Abdomen): normal bowel sounds, soft, nontender, no hepatosplenomegaly Musculoskeletal: Extremities: extremities normal to inspection Skin: Patient has some telangiectasias on the lateral aspect of her neck. She also has significant dyshidrotic eczema on both of her palms. Neurologic: Nonfocal exam Lymphatic: no cervical lymphadenopathy Results & Data Results & Data Vital Signs (Past 12 Hours) Vital Signs Temp Pulse Pulse Resp BP BP Pulse Ox 06/17/23 07:30 81 17 97 06/17/23 07:15 78 18 99 06/17/23 07:15 183/96 H 06/17/23 07:00 78 20 99 06/17/23 07:00 193/98 H 06/17/23 07:18 76 06/17/23 06:30 80 22 98 06/17/23 06:30 177/128 H 06/17/23 06:15 80 24 99 06/17/23 06:15 187/88 H 06/17/23 06:00 84 27 H 98 06/17/23 06:00 182/106 H 06/17/23 05:45 78 21 99 06/17/23 05:45 179/97 H 06/17/23 05:42 79 20 98 06/17/23 05:42 177/105 H 06/17/23 05:30 73 23 98 06/17/23 05:30 185/99 H 06/17/23 05:18 187/106 H 06/17/23 05:18 74 17 98 06/17/23 05:15 76 19 98 06/17/23 05:15 159/123 H 06/17/23 05:14 195/101 H 08/09/23 05:14 86 18 98 06/17/23 05:00 83 23 98 06/17/23 05:00 183/117 H 06/17/23 04:00 80 198/107 H 06/17/23 04:57 76 21 96 06/17/23 04:57 193/108 H 06/17/23 04:45 75 25 H 98 06/17/23 04:30 98 H 22 94 06/17/23 04:30 165/128 H 06/17/23 04:15 76 19 97 06/17/23 04:00 77 16 98 06/17/23 04:00 198/107 H 06/17/23 03:45 80 20 99 06/17/23 03:30 79 18 98 06/17/23 03:30 194/111 H 06/17/23 03:15 87 22 96 06/17/23 04:00 36.7 C 06/17/23 03:41 85 194/111 H 06/17/23 01:30 76 180/119 H 06/17/23 03:00 77 13 99 06/17/23 03:00 194/105 H 06/17/23 02:30 94 H 20 98 06/17/23 02:30 195/97 H 06/17/23 02:00 83 23 97 06/17/23 02:00 195/107 H 06/17/23 01:41 94 H 16 97 06/17/23 01:41 180/119 H 06/17/23 01:30 77 20 97 06/17/23 01:00 77 18 97 06/17/23 01:00 194/107 H 06/17/23 00:43 194/108 H 06/17/23 00:43 79 15 99 06/17/23 00:26 196/104 H 06/17/23 00:26 76 17 97 06/17/23 00:00 80 15 98 06/17/23 00:00 189/113 H 06/17/23 00:00 36.6 C 06/17/23 00:00 90 06/17/23 00:53 83 194/108 H 06/16/23 23:39 189/106 H 06/16/23 23:39 85 23 06/16/23 23:17 195/103 H 06/16/23 23:17 91 H 19 08/08/23 23:00 84 19 97 06/16/23 23:00 184/109 H 06/16/23 22:50 85 17 97 06/16/23 22:50 179/104 H 06/16/23 22:40 169/99 H 06/16/23 22:40 88 18 96 06/16/23 22:30 90 20 98 06/16/23 22:30 177/95 H 06/16/23 22:20 91 H 15 99 06/16/23 22:20 178/98 H 06/16/23 22:10 87 13 99 06/16/23 22:10 181/110 H 06/16/23 22:00 95 H 14 99 06/16/23 22:00 195/101 H 06/16/23 21:50 90 15 100 06/16/23 21:50 205/111 H 06/16/23 21:40 98 H 20 100 06/16/23 21:40 215/116 H 06/16/23 21:30 93 H 17 100 06/16/23 21:30 202/112 H 06/16/23 21:21 97 H 17 100 06/16/23 21:21 225/134 H 06/16/23 21:14 97 H 18 06/16/23 23:29 36.6 C 90 22 195/103 H 98 06/16/23 22:50 93 H 20 179/104 H 97 06/16/23 22:41 82 18 169/99 H 97 06/16/23 22:20 92 H 16 178/98 H 100 06/16/23 22:10 88 16 181/110 H 99 06/16/23 22:00 93 H 16 195/101 H 100 06/16/23 21:50 36.8 C 90 16 205/111 H 100 06/16/23 21:20 94 H 18 225/134 H 100 06/16/23 21:30 91 H 18 202/112 H 99 06/16/23 22:33 36.9 C 85 16 177/95 H 98 06/16/23 22:26 88 18 178/98 H 98 06/16/23 21:50 97 H 20 205/111 H 99 06/16/23 21:40 93 H 22 215/116 H 100 06/16/23 21:13 97 H 06/16/23 20:56 36.4 C L 94 H 20 227/129 H 99 O2 Del Method 06/17/23 07:30 Room Air 06/17/23 07:15 Room Air 06/17/23 07:15 06/17/23 07:00 Room Air 06/17/23 07:00 06/17/23 07:18 06/17/23 06:30 06/17/23 06:30 06/17/23 06:15 06/17/23 06:15 06/17/23 06:00 06/17/23 06:00 06/17/23 05:45 06/17/23 05:45 06/17/23 05:42 06/17/23 05:42 06/17/23 05:30 06/17/23 05:30 06/17/23 05:18 06/17/23 05:18 06/17/23 05:15 06/17/23 05:15 06/17/23 05:14 06/17/23 05:14 06/17/23 05:00 06/17/23 05:00 06/17/23 04:00 06/17/23 04:57 06/17/23 04:57 06/17/23 04:45 06/17/23 04:30 06/17/23 04:30 06/17/23 04:15 06/17/23 04:00 06/17/23 04:00 06/17/23 03:45 06/17/23 03:30 06/17/23 03:30 06/17/23 03:15 06/17/23 04:00 06/17/23 03:41 06/17/23 01:30 06/17/23 03:00 06/17/23 03:00 06/17/23 02:30 06/17/23 02:30 06/17/23 02:00 06/17/23 02:00 06/17/23 01:41 06/17/23 01:41 06/17/23 01:30 06/17/23 01:00 06/17/23 01:00 06/17/23 00:43 06/17/23 00:43 06/17/23 00:26 06/17/23 00:26 06/17/23 00:00 06/17/23 00:00 06/17/23 00:00 06/17/23 00:00 06/17/23 00:53 06/16/23 23:39 06/16/23 23:39 06/16/23 23:17 06/16/23 23:17 06/16/23 23:00 06/16/23 23:00 06/16/23 22:50 06/16/23 22:50 06/16/23 22:40 06/16/23 22:40 06/16/23 22:30 06/16/23 22:30 06/16/23 22:20 06/16/23 22:20 06/16/23 22:10 06/16/23 22:10 06/16/23 22:00 06/16/23 22:00 06/16/23 21:50 06/16/23 21:50 06/16/23 21:40 06/16/23 21:40 06/16/23 21:30 06/16/23 21:30 06/16/23 21:21 06/16/23 21:21 06/16/23 21:14 06/16/23 23:29 Room Air 06/16/23 22:50 Room Air 06/16/23 22:41 Room Air 06/16/23 22:20 Room Air 06/16/23 22:10 Room Air 06/16/23 22:00 Room Air 06/16/23 21:50 Room Air 06/16/23 21:20 Room Air 06/16/23 21:30 Room Air 06/16/23 22:33 06/16/23 22:26 Room Air 06/16/23 21:50 06/16/23 21:40 Room Air 06/16/23 21:13 06/16/23 20:56 Room Air Critical Care Results & Data Vital Signs (Past 12 Hours) Vital Signs Temp Pulse Pulse Resp BP BP Pulse Ox 06/17/23 07:30 81 17 97 06/17/23 07:15 78 18 99 06/17/23 07:15 183/96 H 06/17/23 07:00 78 20 99 06/17/23 07:00 193/98 H 06/17/23 07:18 76 06/17/23 06:30 80 22 98 06/17/23 06:30 177/128 H 06/17/23 06:15 80 24 99 06/17/23 06:15 187/88 H 06/17/23 06:00 84 27 H 98 06/17/23 06:00 182/106 H 06/17/23 05:45 78 21 99 06/17/23 05:45 179/97 H 06/17/23 05:42 79 20 98 06/17/23 05:42 177/105 H 06/17/23 05:30 73 23 98 06/17/23 05:30 185/99 H 06/17/23 05:18 187/106 H 06/17/23 05:18 74 17 98 06/17/23 05:15 76 19 98 06/17/23 05:15 159/123 H 06/17/23 05:14 195/101 H 06/17/23 05:14 86 18 98 06/17/23 05:00 83 23 98 06/17/23 05:00 183/117 H 06/17/23 04:00 80 198/107 H 06/17/23 04:57 76 21 96 06/17/23 04:57 193/108 H 06/17/23 04:45 75 25 H 98 06/17/23 04:30 98 H 22 94 06/17/23 04:30 165/128 H 06/17/23 04:15 76 19 97 06/17/23 04:00 77 16 98 06/17/23 04:00 198/107 H 06/17/23 03:45 80 20 99 06/17/23 03:30 79 18 98 06/17/23 03:30 194/111 H 06/17/23 03:15 87 22 96 06/17/23 04:00 36.7 C 06/17/23 03:41 85 194/111 H 06/17/23 01:30 76 180/119 H 06/17/23 03:00 77 13 99 06/17/23 03:00 194/105 H 06/17/23 02:30 94 H 20 98 06/17/23 02:30 195/97 H 06/17/23 02:00 83 23 97 06/17/23 02:00 195/107 H 06/17/23 01:41 94 H 16 97 06/17/23 01:41 180/119 H 06/17/23 01:30 77 20 97 06/17/23 01:00 77 18 97 06/17/23 01:00 194/107 H 06/17/23 00:43 194/108 H 06/17/23 00:43 79 15 99 06/17/23 00:26 196/104 H 06/17/23 00:26 76 17 97 06/17/23 00:00 80 15 98 06/17/23 00:00 189/113 H 06/17/23 00:00 36.6 C 06/17/23 00:00 90 06/17/23 00:53 83 194/108 H 06/16/23 23:39 189/106 H 06/16/23 23:39 85 23 06/16/23 23:17 195/103 H 06/16/23 23:17 91 H 19 06/16/23 23:00 84 19 97 06/16/23 23:00 184/109 H 06/16/23 22:50 85 17 97 06/16/23 22:50 179/104 H 06/16/23 22:40 169/99 H 06/16/23 22:40 88 18 96 06/16/23 22:30 90 20 98 06/16/23 22:30 177/95 H 06/16/23 22:20 91 H 15 99 06/16/23 22:20 178/98 H 06/16/23 22:10 87 13 99 06/16/23 22:10 181/110 H 06/16/23 22:00 95 H 14 99 06/16/23 22:00 195/101 H 06/16/23 21:50 90 15 100 06/16/23 21:50 205/111 H 06/16/23 21:40 98 H 20 100 06/16/23 21:40 215/116 H 06/16/23 21:30 93 H 17 100 06/16/23 21:30 202/112 H 06/16/23 21:21 97 H 17 100 06/16/23 21:21 225/134 H 06/16/23 21:14 97 H 18 06/16/23 23:29 36.6 C 90 22 195/103 H 98 06/16/23 22:50 93 H 20 179/104 H 97 06/16/23 22:41 82 18 169/99 H 97 06/16/23 22:20 92 H 16 178/98 H 100 06/16/23 22:10 88 16 181/110 H 99 06/16/23 22:00 93 H 16 195/101 H 100 06/16/23 21:50 36.8 C 90 16 205/111 H 100 06/16/23 21:20 94 H 18 225/134 H 100 06/16/23 21:30 91 H 18 202/112 H 99 06/16/23 22:33 36.9 C 85 16 177/95 H 98 06/16/23 22:26 88 18 178/98 H 98 06/16/23 21:50 97 H 20 205/111 H 99 06/16/23 21:40 93 H 22 215/116 H 100 06/16/23 21:13 97 H 06/16/23 20:56 36.4 C L 94 H 20 227/129 H 99 O2 Del Method 06/17/23 07:30 Room Air 06/17/23 07:15 Room Air 06/17/23 07:15 06/17/23 07:00 Room Air 06/17/23 07:00 06/17/23 07:18 06/17/23 06:30 06/17/23 06:30 06/17/23 06:15 06/17/23 06:15 06/17/23 06:00 06/17/23 06:00 06/17/23 05:45 06/17/23 05:45 06/17/23 05:42 06/17/23 05:42 06/17/23 05:30 06/17/23 05:30 06/17/23 05:18 06/17/23 05:18 06/17/23 05:15 06/17/23 05:15 06/17/23 05:14 06/17/23 05:14 06/17/23 05:00 06/17/23 05:00 06/17/23 04:00 06/17/23 04:57 06/17/23 04:57 06/17/23 04:45 06/17/23 04:30 06/17/23 04:30 06/17/23 04:15 06/17/23 04:00 06/17/23 04:00 06/17/23 03:45 06/17/23 03:30 06/17/23 03:30 06/17/23 03:15 06/17/23 04:00 06/17/23 03:41 06/17/23 01:30 06/17/23 03:00 06/17/23 03:00 06/17/23 02:30 06/17/23 02:30 06/17/23 02:00 06/17/23 02:00 06/17/23 01:41 06/17/23 01:41 06/17/23 01:30 06/17/23 01:00 06/17/23 01:00 06/17/23 00:43 06/17/23 00:43 06/17/23 00:26 06/17/23 00:26 06/17/23 00:00 06/17/23 00:00 06/17/23 00:00 06/17/23 00:00 06/17/23 00:53 06/16/23 23:39 06/16/23 23:39 06/16/23 23:17 06/16/23 23:17 06/16/23 23:00 06/16/23 23:00 06/16/23 22:50 06/16/23 22:50 06/16/23 22:40 06/16/23 22:40 06/16/23 22:30 06/16/23 22:30 06/16/23 22:20 06/16/23 22:20 06/16/23 22:10 06/16/23 22:10 06/16/23 22:00 06/16/23 22:00 06/16/23 21:50 06/16/23 21:50 06/16/23 21:40 06/16/23 21:40 06/16/23 21:30 06/16/23 21:30 06/16/23 21:21 06/16/23 21:21 06/16/23 21:14 06/16/23 23:29 Room Air 06/16/23 22:50 Room Air 06/16/23 22:41 Room Air 06/16/23 22:20 Room Air 06/16/23 22:10 Room Air 06/16/23 22:00 Room Air 06/16/23 21:50 Room Air 06/16/23 21:20 Room Air 06/16/23 21:30 Room Air 06/16/23 22:33 06/16/23 22:26 Room Air 06/16/23 21:50 06/16/23 21:40 Room Air 06/16/23 21:13 06/16/23 20:56 Room Air Lab & Micro Results (Past 24 Hours) RBC 3.76 M/uL (4.20-5.40) L 06/16/23 WBC 6.59 K/ul (4.8-10.8) 06/16/23 Hgb 12.3 g/dl (12.0-16.0) 06/16/23 Hct 36.8 % (37.0-47.0) L 06/16/23 MCV 97.9 fL (80.0-100.0) 06/16/23 MCH 32.7 pg (25.0-34.0) 06/16/23 MCHC 33.4 g/dL (32.0-36.0) 06/16/23 RDW Standard Deviation 46.3 fL (36.4-46.3) 06/16/23 RDW Coefficient of Variation 13.0 % (11.5-14.5) 06/16/23 Plt Count 315 K/uL (130-400) 06/16/23 MPV 8.9 fL (9.4-12.4) L 06/16/23 Neutrophils (%) (Auto) 48.2 % 06/16/23 Lymphocytes (%) (Auto) 41.7 % 06/16/23 Monocytes # (Auto) 0.54 K/uL (0.11-0.59) 06/16/23 Eosinophils # (Auto) 0.09 K/uL (0-0.50) 06/16/23 Immature Granulocyte % (Auto) 0.2 % 06/16/23 Neutrophils # (Auto) 3.18 K/uL (1.40-6.50) 06/16/23 Lymphocytes # (Auto) 2.75 K/uL (1.2-3.4) 06/16/23 Monocytes # (Auto) 0.54 K/uL (0.11-0.59) 06/16/23 Eosinophils # (Auto) 0.09 K/uL (0-0.50) 06/16/23 Basophils # (Auto) 0.02 K/uL (0-0.2) 06/16/23 Immature Granulocyte # (Auto) 0.01 K/uL (0.01-0.20) 3 Na 137 mmol/L (136-145) 06/16/23 K 4.0 mmol/L (3.5-5.1) 06/16/23 Cl 106 mmol/L (98-107) 06/16/23 CO2 25 mmol/L (21-32) 06/16/23 Anion Gap 6 (3-11) 06/16/23 BUN 30 mg/dl (6-23) H 06/16/23 Creatinine 1.19 mg/dl (0.6-1.2) 06/16/23 Estimated GFR ( Amer) 51.4 ml/min 06/16/23 Estimated GFR (Non-Af Amer) 44.3 ml/min 06/16/23 BUN/Creatinine Ratio 25.2 (10-20) H 06/16/23 Glu 102 mg/dl (70-99(Fasting)) H 06/16/23 Ca 8.3 mg/dl (8.6-10.3) L 06/16/23 Calcium Level 8.3 mg/dl (8.6-10.3) L 06/16/23 21:17 Prothromb Time International Ratio 0.9 (0.9-1.1) 06/16/23 21:1 7 I & O Totals 24 Hours 06/16/23 06/17/23 06/18/23 06:59 06:59 06:59 Intake Total 754 / 754 Balance 754 / 754 Cumulative 06/16/23 20:53 thru 06/17/23 06:30 Intake Total 754 Balance 754 RT Ventilator Mngmt (Last Documented) Ventilator Ordered Settings Respiratory Rate 17 06/17/23 07:30 Ventilator - PT Measurements Respiratory Rate 17 Coding Level of Care Code 24137 SUB INP/OBS CARE 3/50MIN Diagnoses Angioedema T78.3XXA Sensorineural hearing loss (SNHL) of left ear with restricted hearing of right ear H90.A22 Current tobacco use Z72.0 Dyslipidemia E78.5 HTN (hypertension) I10
[2023-06-17] MEDS ORDERED: methylPREDNISolone 125 MG/2 ML VIAL IV SCH (09:00)
[2023-06-17] MEDS ORDERED: methylPREDNISolone 40 MG in SYRINGE 0 ML IV SCH (09:00)
[2023-06-17] MEDS ORDERED: predniSONE 20 MG TAB PO SCH (09:00)
[2023-06-17] MEDS ORDERED: methylPREDNISolone 60 MG in SYRINGE 0 ML IV SCH (09:00)
[2023-06-17] MEDS ORDERED: diphenhydrAMINE Capsule 25 MG CAP PO SCH (09:00)
[2023-06-17] MEDS ORDERED: INDAPAMIDE 1.25 MG TAB PO SCH (09:00)
[2023-06-17] MEDS ORDERED: dilTIAZem HCL 30 MG TAB PO SCH (09:00)
--- NOTE | 2023-06-17 10:35 | Communication Note ---
Date of Service: June 17, 2023 By CMS guidelines, a determination that the admission or continued stay is not medically necessary has been made by a member of the UR committee and a phy sician for this hospital stay, therefore a Code 44 will be completed and the Inpatient admission will be changed to outpatient.
--- NOTE | 2023-06-17 14:15 | Electrocardiogram Report ---
Test Reason : Blood Pressure : / mmHG Vent. Rate : 079 BPM Atrial Rate : 079 BPM P-R Int : 140 ms QRS Dur : 084 ms QT Int : 390 ms P-R-T Axes : 054 030 040 degrees QTc Int : 447 ms Normal sinus rhythm Normal ECG When compared with ECG of 17-AUG-2020 16:30, No significant change was found Confirmed by Carlton Sinha ([id number]) on 06/17/2023 2:15:20 PM Referred By: REFERRED SELF Confirmed By:Joe Sinha
--- NOTE | 2023-06-17 17:41 | Discharge Summary ---
Date of Service June 17, 2023 Admission HPI Per Admitting Provider Pt is a 78 year old female presenting with angioedema. Swelling of lips and tongue began about 40 minutes after patient ate English food for dinner. Of note, patient denies history of food allergies. Also notes that she develops reactions like this from time to time, though is uncertain of inciting trigger. In the past, she has taken 1 benadryl whenever this happens, with subsequent relief. Today, however, swelling persisted despite taking a benadryl at home. Denies shortness of breath. Denies difficulty swallowing. Denies rash or itchiness. No family history of similar symptoms. Patient is on Lisinopril but states that these reactions predate initiation of Lisinopril. ED Course: Patient given IV Solumedrol, Pepcid, Benadryl, and TXA + IM epinephrine FFP administratio started Principal Diagnosis angioedema since resolved Discharge Exam patient is almost complete resolution of any facial or tongue swelling she has mild erythema around her right neck where she has been scratching but nothing indurated or tender or swollen Discharge Data Allergies Allergy/AdvReac Type Severity Reaction Status Date / Time erythromycin base Allergy Unknown Nausea Verified 07/29/21 11:35 Consultations 06/16/23 21:33 Consult Anesthesiology Stat 06/16/23 21:34 ED Decision to Admit Stat 06/16/23 23:28 Consult Van Owner Operator Routine Hospital Course (1) Angioedema: (2) HTN (hypertension): (3) Dyslipidemia: Plan #Angioedema - Angioedema in the setting of ACEi use most likely - presumed to be bradykinin- mediated rather than histamine-mediated due to absence of rash/hives, though difficult to say definitively as treatment was initiated to address both pathways simultaneously - hold Lisinopril discharge patient agreed to take amlodipine - s/p TXA and FFP - s/p Solumedrol, Benadryl, Pepcid will have additional days of prednisone at home - instructed take Benadryl or Pepcid if she feels her symptoms are returning - C4, C1q, C1 esterase inhibitor ordered, results pending #HTN - Hold Lisinopril - wrist Indapamide, added amlodipine appointment with allergy strongly encouraged - educated on EpiPen use given prescription for EpiPen #HLD: simvastatin Full Code Total Time Total Time Spent Total Time Spent (In Minutes): it required greater than 30 minutes to prepare this patient for discharge Discharge Plan Discharge Items Patient Disposition: Home - Self-Care Reason For Visit: ANGIOEDEMA Discharge Diagnosis: angioedema Activity: Resume your previous activity Non-emergency contact: Primary Care Provider Call non-emergency contact if: your symptoms worsen Follow-up/Referrals: Lisa Diaz PA-C [Physician Mortuary Beautician] - 06/19/23 3:00 pm ([facility] ) Mark Douglas MD [Physician] - 07/06/23 1:40 pm (Allergy appointment Please arrive 15 minutes prior to appointment time) PCP,NO [Primary Care Provider] - Diet: Regular Addtl Attending Provider Instructions: Angioedema is swelling in the deep layers of the skin. Swelling can also happen in the tissues that line your mouth, throat, and other organs. Angioedema can sometimes occur along with hives. Hives are an allergic reaction in the outer layers of the skin. Angioedema can range from mild to severe. Painful swelling can develop on the face and in other parts of the body. Swelling in the belly can cause pain, nausea, vomiting, and diarrhea. In severe cases, the inside of the throat can swell and make it hard to breathe. Many things can cause this condition, including foods, insect bites, and medicines (such as aspirin and some blood pressure medicines). It also can run in families. Sometimes you may know what caused the reaction, but other times you may not know. Your doctor may prescribe a shot of epinephrine to carry with you in case you have a severe reaction. Learn how to give yourself the shot and keep it with you at all times. Make sure it has not Pending Studies at Discharge: No Stand-Alone Forms: My [facility] Miproto, Smoking Cessation Medications and DC Order Prescriptions: New prednisone 20 mg tablet 20 mg PO DAILY 3 Days Qty: 3 0RF epinephrine 0.3 mg/0.3 mL auto-injector 0.3 mg IM Q4H PRN (Reason: anaphylaxis) Qty: 2 2RF amlodipine 5 mg tablet 5 mg PO DAILY Qty: 30 2RF Continued simvastatin 40 mg tablet 40 mg PO HS Qty: 90 3RF indapamide 1.25 mg tablet 1.25 mg PO QAM Qty: 30 0RF Discontinued lisinopril 20 mg tablet 40 mg PO DAILY Qty: 60 0RF Discharge Orders: Discharge Order (Routine); Ordered 06/17/23 Ordered By: Giovani Mckeon/Other Patient Handouts: High Blood Pressure Risk Factors, Taking a Diuretic, ED Angioedema Admission Data Admit Date/Time: 06/16/23 22:11 Attending Provider: Giovani Lloyd Admit Provider: Clement Lopez Primary Care Provider: PCP,NO Other Providers: Darius Kaye ; Iris Navarro ; Lazaro Pryor Other Interventions: Discharge Summary Assessment (RN) Last Done: 06/17/23 09:58 Coding Level of Care Code 05400 INP/OBS DISCH >30 MIN Diagnoses Angioedema T78.3XXA HTN (hypertension) I10 Dyslipidemia E78.5
[2023-06-23 18:22] LABS: C1 Esterase Inhib Functional >100 % (>=68); C1 Esterase Inhibitor 41 mg/dL (21-39); Complement C1q 6.2 mg/dL (5.0-8.6)
== END 2023-06-17 11:49 | disposition home or self-care (01) | DRG 916 ==
LOC: ED 20:53 → INTOOBSV 22:11 → 1E 22:11 → SUATTDRO 22:11 → 1E 22:55

== ENCOUNTER 2025-06-04 13:12 | Inpatient (IN) ==
[2025-06-04] MEDS: DEXTROSE 50% 50 ML SYRINGE IV ONE ×2 (13:18→13:22)
--- NOTE | 2025-06-04 13:36 | XRay Report ---
XR chest 1V portable CLINICAL HISTORY: weakness COMPARISON STUDY: 08/17/2020 FINDINGS: Heart size and pulmonary vasculature are normal. Stable hyperexpanded lungs. No consolidati on or pleural effusion. No pneumothorax. IMPRESSION: No acute findings. ACT 112: Negative or not required by law. Electronically signed by: Wiliam Jenkins M.D. 06/04/2025 1:35 PM
[2025-06-04] MEDS: SODIUM CHLORIDE 0.9% 1,000 ML IV ONE (13:49)
[2025-06-04] MEDS: ONDANSETRON INJ 2 MG/ML 2 ML VIAL IV STA (13:49)
[2025-06-04 13:59] LABS: Hematocrit (blood only) 27.7 % (37.0-47.0); Hemoglobin 9.1 g/dl (12.0-16.0); Immature Granulocytes # (auto) 0.04 K/uL (0.01-0.20); Immature Granulocytes % (auto) 0.3 %; Mean Corpuscular Hemoglobin 33.2 pg (25.0-34.0); Mean Corpuscular Volume 101.1 fL (80.0-100.0); Platelet Count 278 K/uL (130-400); RDW Standard Deviation 52.5 fL (36.4-46.3); Red Blood Count 2.74 M/uL (4.20-5.40); White Blood Count 11.91 K/ul (4.8-10.8)
[2025-06-04 14:15] LABS: Alanine Aminotransferase 8.0 U/L (7-52); Albumin Globulin Ratio 2.1 (0.9-2); Alkaline Phosphatase 65.0 U/L (34-104); Anion Gap 16.0 (3-11); Bilirubin,Total 0.4 mg/dl (0.2-1.0); Blood Urea Nitrogen 49.0 mg/dl (6-23); Calcium 7.8 mg/dl (8.6-10.3); Carbon Dioxide 12.0 mmol/L (21-32); Chloride 107.0 mmol/L (98-107); Creatinine Clr Calc Pharmacy 20.0 ml/min; Globulin 1.7 gm/dl (2.5-4.0); Glucose 261.0 mg/dl (70-99(Fasting)); Potassium 4.1 mmol/L (3.5-5.1); Sodium 135.0 mmol/L (136-145); Total Protein 5.2 gm/dl (6.0-8.3)
[2025-06-04 14:30] LABS: Thyroid Stimulating Hormone 1.114 uIu/ml (0.300-4.500)
[2025-06-04] MEDS: SODIUM CHLORIDE 0.9% 1,000 ML IV SCH (15:27)
--- NOTE | 2025-06-04 15:29 | CT Scan Report ---
CT head without contrast History: Trauma Comparison: Vision changes Technique: Using multidetector thin collimation helical acquisition technique, axial, coronal and sagittal CT images from the skull base to the vertex were obtained without intravenous contrast. Dose reduction techniques were achieved by using automatic exposure control and/or adjustment of mA and/or kV according to patient size and/or use of iterative reconstruction technique. Findings: No intracranial hemorrhage, mass-effect, or midline shift. The ventricles are proportionate to the cerebral sulci. The polo to white matter differentiation of the cerebral hemispheres is preserved. The basal cisterns are patent. Moderate cerebral atrophy. The visualized paranasal sinuses are clear. Mastoid air cells are clear. Impression: No acute intracranial pathology. Electronically signed by Carlton Kaiser 06-04-2025 3:28 PM
--- NOTE | 2025-06-04 15:34 | CT Scan Report ---
EXAMINATION: CT of the abdomen and pelvis performed without contrast TECHNIQUE: Helical CT images from the lung bases through the symphysis pubis were obtained without contrast. Coronal and sagittal reformatted images were generated at a workstation for further assessment. Dose reduction techniques were achieved by using automatic exposure control and/or adjustment of mA and/or kV according to patient size and/or use of iterative reconstruction technique. COMPARISON: May 28 6024 HISTORY: Abdominal pain. Vomiting FINDINGS: No consolidation in the lower chest. No pleural effusion or pneumothorax. There is no free air. The unenhanced spleen, pancreas and left adrenal gland are unremarkable. Postoperative changes of the right adrenal gland. Partial right-sided nephrectomy. Probable gallbladder sludge. Unremarkable liver. There is an exophytic 1.3 cm lesion of the lateral mid superior pole right kidney, is hyperattenuating and not significantly changed from prior. Significant interval decrease in an area of fluid adjacent to the suture margin now measuring 0.7 cm, previously 2.0 cm. Left-sided renal cyst redemonstrated, there is no hydronephrosis. Atherosclerosis of the aorta. No bowel obstruction or bowel wall thickening identified. Soft tissues are within normal limits. Surgical clips within the left abdomen. No acute fracture or destructive bone lesion. IMPRESSION: 1. No acute intra-abdominal process. 2. Stable postoperative changes compatible with right adrenalectomy and right partial nephrectomy. 3. Stable and resolving cystic structures and areas of fluid adjacent to the right renal surgical margin, as above. Electronically signed by Carlton Kaiser 06-04-2025 3:34 PM
--- NOTE | 2025-06-04 17:40 | History & Physical Report ---
Date of Service June 04, 2025 Assessment & Plan (1) H/O partial nephrectomy: (2) H/O partial adrenalectomy: (3) Vitamin D deficiency: (4) Lesion of adrenal gland: (5) Hx of ovarian cancer: (6) Kidney tumor: (7) Hypertension: (8) Hyperlipidemia: (9) Iron deficiency anemia: (10) Gastroenteritis: Plan: 80 female history RCC And pheochromocytoma status post partial right nephrectomy and partial adrenalectomy CKD gout hearing loss chronic EtOH in the past smoking hypertension RICHARDSON angioedema and anaphylaxis in the past Arthritis history ovarian cancer Status post hysterectomy who presents with nausea vomiting Anorexia inability to tolerate p.o. abdominal discomfort diarrhea generalized weakness over the past couple days. Also presented with confusion and double vision. Worked up in the ED with impression of gastroenteritis with severe dehydration and hypokalemia. Also noted to have blood sugar of 24 was given an amp of dextrose for this with no further episodes of hypoglycemia. At time of evaluation, patient has returned to baseline Confusion seems to have resolved. tells me she feels back to normal. Denies any history of diabetes not on insulin therapy. CT abdomen pelvis negative for acute process no reports of insulinoma or other abnormalities. Acute gastroenteritis Supportive care Advance diet as tolerated IV fluids Follow stool studies Monitor low bicarb in setting of Diarrhea Hypoglycemia in setting of poor p.o. intake Hypoglycemic protocol as needed Acute metabolic encephalopathy resolved Delirium precautions PVCs/fusion complexes Telemetry K greater than 4 mag greater than 2 Acute on chronic anemia History RICHARDSON. Iron supplements Monitor. Hb goal greater than 7 CKD Avoid nephrotoxic meds DVT prophylaxis Full code Disposition admission to telemetry History of Present Illness Chief Complaint: vomiting Primary Care Provider: Aisha Beltran MD 80 female history RCC And pheochromocytoma status post partial right nephrectomy and partial adrenalectomy CKD gout hearing loss chronic EtOH in the past smoking hypertension RICHARDSON angioedema and anaphylaxis in the past Arthritis history ovarian cancer Status post hysterectomy who presents with nausea vomiting Anorexia inability to tolerate p.o. abdominal discomfort diarrhea generalized weakness over the past couple days. Also presented with confusion and double vision. Worked up in the ED with impression of gastroenteritis with severe dehydration and hypokalemia. Also noted to have blood sugar of 24 was given an amp of dextrose for this with no further episodes of hypoglycemia. At time of evaluation, patient has returned to baseline Confusion seems to have resolved. tells me she feels back to normal. Denies any history of diabetes not on insulin therapy. CT abdomen pelvis negative for acute process no reports of insulinoma or other abnormalities. At time of evaluation denies nausea vomiting abdominal pain headache vision change lightheadedness double vision numbness tingling weakness or other neurological symptoms. No chest pain shortness of breath or any other symptoms. At time of this writing documentation from ED physician pending and home med rec pending update Allergies Allergy/AdvReac Type Severity Reaction Status Date / Time lisinopril Allergy Severe gout Verified 02/09/25 09:23 erythromycin base AdvReac Mild Nausea Verified 02/09/25 09:23 Home Medications Medication Instructions Recorded Confirmed Type epinephrine 0.3 mg/0.3 mL 0.3 mg (0.3 mL) IM Q4H PRN 06/17/23 02/09/25 Rx injection, auto-injector anaphylaxis #2 ea cetirizine 10 mg tablet 10 mg PO QAM allergy symptoms 12/07/23 02/09/25 History allopurinol 100 mg tablet 100 mg PO QAM #90 tabs 12/07/24 02/09/25 Rx amlodipine 2.5 mg tablet 2.5 mg PO QAM #90 tabs 12/12/24 02/09/25 Rx atorvastatin 40 mg tablet 40 mg PO QPM #90 tabs 12/12/24 02/09/25 Rx indapamide 1.25 mg tablet 1.25 mg PO QAM #90 tabs 12/12/24 02/09/25 Rx pantoprazole 40 mg tablet,delayed 40 mg PO DAILY #90 tabs 12/12/24 02/09/25 Rx release telmisartan 20 mg tablet 20 mg PO QAM #90 tabs 12/12/24 02/09/25 Rx cholecalciferol (vitamin D3) 50 4,000 unit PO DAILY 02/09/25 02/09/25 History mcg (2,000 unit) capsule ferrous sulfate 325 mg (65 mg 325 mg PO DAILY 02/09/25 02/09/25 History iron) tablet,delayed release Past Med/Surg History Problem List (Updated 06/04/25 @ 17:51 by Gurmeet Vasquez MD) Gastroenteritis H/O partial nephrectomy right H/O partial adrenalectomy right Vitamin D deficiency Lesion of adrenal gland Lesion of right [place] kidney Thrombocytosis Bilateral swelling of feet Microalbuminuria CKD (chronic kidney disease) stage 3, GFR 30-59 ml/min Gout Angioedema (Acute) Asymmetrical hearing loss Alcohol use (Chronic) Hyponatremia Low back pain (Acute) Current tobacco use Dyslipidemia (Chronic) HTN (hypertension) (Chronic) Cigarette nicotine dependence Iron deficiency anemia 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 Sensorineural hearing loss (SNHL) of left ear with restricted hearing of right ear Medical History Renal cell carcinoma of right kidney Pheochromocytoma of right adrenal gland Arthritis Kidney tumor Hx of ovarian cancer Hypertension Hyperlipidemia Surgical History History of tooth extraction H/O hysterectomy with oophorectomy Family History Father Heart disease Myocardial infarction Mother Stroke Uncle Myocardial infarction Other Allergies No family history of adverse response to anesthesia No family history of bleeding disorder Ovarian cancer Denies family history of Prostate cancer Hearing loss Breast cancer Colorectal cancer Cancer Asthma Social History Smoking Status: Current every day smoker Tobacco Type: Cigarettes Age Started Using Tobacco: 20; packs per day: 1; Cigarettes Per Day: 3-4 cig daily now>advised; Second Hand Exposure: Yes (at work with co-workers smoke); Do You Dip or Chew Tobacco: No; Hx Alcohol Use: Yes Alcohol type: wine Alcohol Intake Frequency: 4 or More x per/Week Hx Substance Use: No Preferred Language: Latvian Communication Ability: Effective Visual Impairment: Limited Hearing Ability: Normal Bench Examiner Required: No Beliefs That Will Affect Care: None marital status: / Current Living Situation: Family Current Living Situation Comment: with sonStephen current occupational status: employed current occupation: [employer] How many Children do You have: 2 Feels Safe at Home: Yes Childhood Exposure to Second-Hand Smoke: Yes Diet: other Diet Comment: avoids lunch meats, gout friendly diet caffeine: Yes (1-2 coffee daily) Dental Care, Regularly: No Physical Activity Frequency: 3-4 Times per Week Seatbelt Use: always Sunscreen Use: No Do you think of yourself as: straight/heterosexual Gender Identity: Female Assistive Devices: Glasses and Hearing Aid - Right Review of Systems Review of Systems: All systems reviewed & are unremarkable except as noted in Subjective Physical Exam Constitutional: + thin; not in distress Eyes: PERRL, conjunctivae normal, anicteric sclerae ENMT: external ear and nose normal, oropharynx normal Neck: trachea midline, no thyromegaly Respiratory: normal respiratory effort, lungs clear to auscultation Cardiovascular: RRR, no murmur, no edema Gastrointestinal (Abdomen): normal bowel sounds, soft, nontender, no hepatosplenomegaly Skin: no rashes, warm and dry Neurologic: Speech / Cognition: normal speech and normal cognition Psychiatric: Affect: euthymic affect Results & Data Results & Data Vital Signs (Past 12 Hours) Vital Signs Pulse Resp BP Pulse Ox O2 Del Method 06/04/25 16:03 105 H 19 139/72 97 Room Air 06/04/25 15:00 98 H 15 152/89 H 96 Room Air 06/04/25 14:30 102 H 18 152/88 H 96 Room Air 06/04/25 14:04 107 H 06/04/25 13:13 112 H 18 111/61 100 Room Air Laboratory Results Abnormal Labs 06/04/25 06/04/25 06/04/25 13:21 13:38 15:41 WBC 11.91 H RBC 2.74 L Hgb 9.1 L Hct 27.7 L MCV 101.1 H RDW Std Deviation 52.5 H Neut # (Auto) 9.37 H Sodium 135 L Carbon Dioxide 12 L Anion Gap 16 H BUN 49 H Creatinine 1.77 H BUN/Creatinine Ratio 27.7 H Glucose 261 H POC Glucose 193 H 146 H Calcium 7.8 L Total Protein 5.2 L Globulin 1.7 L Albumin/Globulin Ratio 2.1 H Diagnostic Findings Chest X-Ray 06/04/25 13:14 XR chest 1V portable CLINICAL HISTORY: weakness COMPARISON STUDY: 08/17/2020 FINDINGS: Heart size and pulmonary vasculature are normal. Stable hyperexpanded lungs. No consolidation or pleural effusion. No pneumothorax. IMPRESSION: No acute findings. ACT 112: Negative or not required by law. Electronically signed by: Wiliam Jenkins M.D. 06/04/2025 1:[address] 06/04/25 13:27 CT head without contrast History: Trauma Comparison: Vision changes Technique: Using multidetector thin collimation helical acquisition technique, axial, coronal and sagittal CT images from the skull base to the vertex were obtained without intravenous contrast. Dose reduction techniques were achieved by using automatic exposure control and/or adjustment of mA and/or kV according to patient size and/or use of iterative reconstruction technique. Findings: No intracranial hemorrhage, mass-effect, or midline shift. The ventricles are proportionate to the cerebral sulci. The polo to white matter differentiation of the cerebral hemispheres is preserved. The basal cisterns are patent. Moderate cerebral atrophy. The visualized paranasal sinuses are clear. Mastoid air cells are clear. Impression: No acute intracranial pathology. Electronically signed by Carlton Kaiser 06-04-2025 3:28 PM Abdomen/Pelvis CT 06/04/25 14:38 EXAMINATION: CT of the abdomen and pelvis performed without contrast TECHNIQUE: Helical CT images from the lung bases through the symphysis pubis were obtained without contrast. Coronal and sagittal reformatted images were generated at a workstation for further assessment. Dose reduction techniques were achieved by using automatic exposure control and/or adjustment of mA and/or kV according to patient size and/or use of iterative reconstruction technique. COMPARISON: May 28 6024 HISTORY: Abdominal pain. Vomiting FINDINGS: No consolidation in the lower chest. No pleural effusion or pneumothorax. There is no free air. The unenhanced spleen, pancreas and left adrenal gland are unremarkable. Postoperative changes of the right adrenal gland. Partial right-sided nephrectomy. Probable gallbladder sludge. Unremarkable liver. There is an exophytic 1.3 cm lesion of the lateral mid superior pole right kidney, is hyperattenuating and not significantly changed from prior. Significant interval decrease in an area of fluid adjacent to the suture margin now measuring 0.7 cm, previously 2.0 cm. Left-sided renal cyst redemonstrated, there is no hydronephrosis. Atherosclerosis of the aorta. No bowel obstruction or bowel wall thickening identified. Soft tissues are within normal limits. Surgical clips within the left abdomen. No acute fracture or destructive bone lesion. IMPRESSION: 1. No acute intra-abdominal process. 2. Stable postoperative changes compatible with right adrenalectomy and right partial nephrectomy. 3. Stable and resolving cystic structures and areas of fluid adjacent to the right renal surgical margin, as above. Electronically signed by Carlton Kaiser 06-04-2025 3:34 PM PG Care Time/CCT Total # of Minutes Spent Total Time Spent with Patient: Total time spent is greater than 50% in coordination of care (as documented) at patient's floor/unit and/or counseling patient: Coding Level of Care Code 22681 INT INP/OBS CARE 2/55MIN Diagnoses H/O partial nephrectomy Z90.5 H/O partial adrenalectomy E89.6 Vitamin D deficiency E55.9 Lesion of adrenal gland E27.9 Hx of ovarian cancer Z85.43 Kidney tumor D49.519 Hypertension I10 Hyperlipidemia E78.5 Iron deficiency anemia D50.9 Gastroenteritis K52.9
[2025-06-04] MEDS ORDERED: ONDANSETRON INJ 2 MG/ML 2 ML VIAL IV PRN (17:57)
[2025-06-04] MEDS ORDERED: ACETAMINOPHEN 325 MG TAB PO PRN (17:57)
[2025-06-04 19:04] LABS: Appearance Urine Clear (Clear); Glucose Urine UA Negative (Negative)
--- NOTE | 2025-06-04 19:15 | Emergency Department Note ---
Impression & Plan Nausea, vomiting, and diarrhea, Acute dehydration, Hypoglycemia ED Provider Note NAME: SHEELA ALEXANDRE AGE: 80 SEX: Female INFORMANT: Patient ED PROVIDER(S): Julien Jimenez MD CHIEF COMPLAINT: Illness PLAN: Disposition: Admitted Outpatient prescription management: none Referral: None MEDICAL DECISION MAKING: Patient presented to the ER due to illness. She was hypoglycemic and responded well to IV dextrose. Her CBC and chemistry panel revealed dehydration. Cardiac troponin and ECG without ischemia. Patient was hydrated. She was treated with Zofran. She declined analgesia. She underwent CT imaging of the head and abdomen pelvis. No acute process identified. Chest x-ray unremarkable. Stool and urine testing sent. On reassessment patient was doing better. She notes not taking any diabetic medications or insulin. No prior history of hypoglycemia. Further evaluation and management in the hospital will be appropriate. Consultation was made with the [facility] hospitalist service. Patient was evaluated in the ER and admitted for further management. Care/management discussed with: Hospitalist, lead case manager Level of care consideration(s): After review of the information above and other included data, I feel the patient requires escalation of care to admission Triage Nursing notes: reviewed and agree them. Vital Signs: reviewed and remarkable for tachycardia Additional History obtained from: Family regarding the illness course over the last 3 days as well as the other family members symptoms. Chronic Medical/Social Conditions affecting care: Hypertension Prior/ Outside/ External records reviewed: none Differential Diagnosis: Infection, dehydration, metabolic abnormality, hypo/hyperglycemia, electrolyte disturbance, anemia, hypoxia, cardiac sources, intracerebral event, toxicologic, neurologic, as well as other pathologies. Diagnostics, independently interpreted by me: EC-lead ECG result sinus tachycardia at 113 bpm with P VCs. Low voltage QRS without ST elevation or depression. Poor baseline data. Cardiac Monitoring: Cardiac monitoring ordered by me: The patient was placed on continuous cardiac monitoring and observed. It revealed a sinus tachycardic rhythm at 100 bpm. Medical decision rules: none Imaging studies: Chest x-ray. Findings: A chest x-ray was performed and revealed no pneumothorax, effusion, infiltrate, pulmonary edema, free air under the diaphragm, or wide mediastinum. Impression: No acute disease. Head CT: A noncontrast CT scan of the head was performed and was negative for tumor, fracture, intracranial hemorrhage, or other acute pathology. I refer you to the EMR for further details. HPI: 80 year old Female arrives for evaluation of illness. This started 3 days ago and is worsening. The patient also notes the following associated symptoms, nausea, vomiting, diarrhea, fatigue, and confusion today. EMS was summoned given the confusion. Patient was found to have a blood glucose of 24 per EMS. She was given oral glucose. On arrival to the Emergency Department she was confused and her BSG was 29. Patient was treated with a amp of D50 and glucose normalized. Mental status returned to normal. Patient states earlier she did have some double vision and there was some reported slurred speech. Current pain is rated as 0/10. Family presented and notes that a GI illness has been going around the household pt denies LOC, headache, fevers, chills, diaphoresis, visual changes, neck pain, chest pain, breathing difficulties, abdominal pain, back pain, melena, hematochezia, urinary symptoms, numbness, lymphadenopathy, rash, or other complaints.. PAST MEDICAL HISTORY: See Below, hypertension PAST SURGICAL HISTORY: See Below, SOCIAL HISTORY: See Below, lives with HOME MEDICATIONS: See Below ALLERGIES: See Below VITALS: See Below PHYSICAL EXAMINATION: GENERAL: Awake, tired-appearing, in no distress HENT: Normocephalic, atraumatic. Oropharynx with dry mucous membranes. EYES: Normal conjunctiva. Sclera non-icteric. NECK: Inspection normal. Non-tender. Supple. No nuchal rigidity. FROM. No masses. RESPIRATORY: Clear to auscultation. No wheezes. No rales. Normal respiratory effort. CARDIAC: Tachycardic rate. Normal rhythm. No murmurs. No rubs. Extremities warm and well perfused. Pulses equal. No JVD. GI: Soft, non-distended. No tenderness to palpation. No rebound or guarding. No masses. RECTAL: Deferred. MUSCULOSKELETAL: Atraumatic. Chest examination reveals no tenderness. The back is symmetrical on inspection without obvious abnormality. There is no CVA tenderness to palpation. No joint edema. LOWER EXTREMITIES: Calves are equal size bilaterally and non-tender. No edema. No discoloration. NEURO: Normal sensorium. Generally weak but no focal sensory or motor deficits noted. SKIN: No rash or jaundice noted. PROCEDURES: none CRITICAL CARE: none OBSERVATION NOTE: none Past Med/Surg History Problem List (Updated 06/04/25 @ 19:15 by Julien Jimenez MD) Hypoglycemia (Acute) Acute dehydration (Acute) Nausea, vomiting, and diarrhea (Acute) Gastroenteritis H/O partial nephrectomy right H/O partial adrenalectomy right Vitamin D deficiency Lesion of adrenal gland Lesion of right [place] kidney Thrombocytosis Bilateral swelling of feet Microalbuminuria CKD (chronic kidney disease) stage 3, GFR 30-59 ml/min Gout Angioedema (Acute) Asymmetrical hearing loss Alcohol use (Chronic) Hyponatremia Low back pain (Acute) Current tobacco use Dyslipidemia (Chronic) HTN (hypertension) (Chronic) Cigarette nicotine dependence Iron deficiency anemia 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 Sensorineural hearing loss (SNHL) of left ear with restricted hearing of right ear Medical History Renal cell carcinoma of right kidney Pheochromocytoma of right adrenal gland Arthritis Kidney tumor Hx of ovarian cancer Hypertension Hyperlipidemia Surgical History History of tooth extraction H/O hysterectomy with oophorectomy Family History Father Heart disease Myocardial infarction Mother Stroke Uncle Myocardial infarction Other Allergies No family history of adverse response to anesthesia No family history of bleeding disorder Ovarian cancer Denies family history of Prostate cancer Hearing loss Breast cancer Colorectal cancer Cancer Asthma Social History Smoking Status: Current every day smoker Tobacco Type: Cigarettes Age Started Using Tobacco: 20; packs per day: 1; Cigarettes Per Day: 3-4 cig daily now>advised; Second Hand Exposure: Yes (at work with co-workers smoke); Do You Dip or Chew Tobacco: No; Hx Alcohol Use: Yes Alcohol type: wine Alcohol Intake Frequency: 4 or More x per/Week Hx Substance Use: No Preferred Language: Frisian Communication Ability: Effective Visual Impairment: Limited Hearing 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: 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 Service Required: No Beliefs That Will Affect Care: None marital status: / Current Living Situation: Family Current Living Situation Comment: with sonStephen current occupational status: employed current occupation: [employer] How many Children do You have: 2 Feels Safe at Home: Yes Childhood Exposure to Second-Hand Smoke: Yes Diet: other Diet Comment: avoids lunch meats, gout friendly diet caffeine: Yes (1-2 coffee daily) Dental Care, Regularly: No Physical Activity Frequency: 3-4 Times per Week Seatbelt Use: always Sunscreen Use: No Do you think of yourself as: straight/heterosexual Gender Identity: Female Assistive Devices: Glasses and Hearing Aid - Right Allergies Allergies Allergy/AdvReac Type Severity Reaction Status Date / Time lisinopril Allergy Severe gout Verified 02/09/25 09:23 erythromycin base AdvReac Mild Nausea Verified 02/09/25 09:23 Home Meds Home Medications Medication Instructions Recorded Confirmed cetirizine 10 mg tablet 10 mg PO QAM allergy symptoms 12/07/23 02/09/25 cholecalciferol (vitamin D3) 50 4,000 unit PO DAILY 02/09/25 02/09/25 mcg (2,000 unit) capsule ferrous sulfate 325 mg (65 mg 325 mg PO DAILY 02/09/25 02/09/25 iron) tablet,delayed release Previous Rx's Medication Instructions Recorded epinephrine 0.3 mg/0.3 mL 0.3 mg (0.3 mL) IM Q4H PRN 06/17/23 injection, auto-injector anaphylaxis #2 ea allopurinol 100 mg tablet 100 mg PO QAM #90 tabs 12/07/24 amlodipine 2.5 mg tablet 2.5 mg PO QAM #90 tabs 12/12/24 atorvastatin 40 mg tablet 40 mg PO QPM #90 tabs 12/12/24 indapamide 1.25 mg tablet 1.25 mg PO QAM #90 tabs 12/12/24 pantoprazole 40 mg tablet,delayed 40 mg PO DAILY #90 tabs 12/12/24 release telmisartan 20 mg tablet 20 mg PO QAM #90 tabs 12/12/24 Results & Data (ED) Vital Signs Vital Signs - 24 hr 06/04/25 13:13 06/04/25 14:04 06/04/25 14:30 Pulse Rate 112 H 107 H 102 H Respiratory Rate 18 18 Respiratory Effort / Characteristics Non-Labored Spontaneous Respiratory Depth Normal Blood Pressure 111/61 152/88 H Blood Pressure Mean 77 109 Pulse Oximetry 100 96 Oxygen Delivery Method Room Air Room Air Sepsis Recent Fever Within 48 Hours No Sepsis New/Unexplained Change in Mental Status N/A Sepsis Action Taken by Nursing No Action Required 06/04/25 15:00 06/04/25 16:03 06/04/25 18:42 Pulse Rate 98 H 105 H 103 H Respiratory Rate 15 19 17 Respiratory Effort / Characteristics Respiratory Depth Blood Pressure 152/89 H 139/72 150/84 H Blood Pressure Mean 110 94 106 Pulse Oximetry 96 97 97 Oxygen Delivery Method Room Air Room Air Room Air Sepsis Recent Fever Within 48 Hours Sepsis New/Unexplained Change in Mental Status Sepsis Action Taken by Nursing 06/04/25 18:46 Pulse Rate 100 H Respiratory Rate Respiratory Effort / Characteristics Respiratory Depth Blood Pressure Blood Pressure Mean Pulse Oximetry Oxygen Delivery Method Sepsis Recent Fever Within 48 Hours Sepsis New/Unexplained Change in Mental Status Sepsis Action Taken by Nursing Laboratory Data 06/04/25 13:21 06/04/25 13:21 Lab Results 06/04/25 06/04/25 06/04/25 Range/Units 13:21 13:38 15:41 WBC 11.91 H (4.8-10.8) K/ul RBC 2.74 L (4.20-5.40) M/uL Hgb 9.1 L (12.0-16.0) g/dl Hct 27.7 L (37.0-47.0) % MCV 101.1 H (80.0-100.0) fL MCH 33.2 (25.0-34.0) pg MCHC 32.9 (32.0-36.0) g/dL RDW Std Deviation 52.5 H (36.4-46.3) fL RDW Coeff of Meena 14.1 (11.5-14.5) % Plt Count 278 (130-400) K/uL MPV 9.6 (9.4-12.4) fL Immature Gran % (Auto) 0.3 % Neut % (Auto) 78.7 % Lymph % (Auto) 17.4 % [place] % (Auto) 2.9 % Eos % (Auto) 0.5 % Baso % (Auto) 0.2 % Neut # (Auto) 9.37 H (1.40-6.50) K/uL Lymph # (Auto) 2.07 (1.20-3.40) K/uL [place] # (Auto) 0.35 (0.11-0.59) K/uL Eos # (Auto) 0.06 (0.00-0.50) K/uL Baso # (Auto) 0.02 (0.00-0.20) K/uL Immature Gran # (Auto) 0.04 (0.01-0.20) K/uL Sodium 135 L (136-145) mmol/L Potassium 4.1 (3.5-5.1) mmol/L Chloride 107 (98-107) mmol/L Carbon Dioxide 12 L (21-32) mmol/L Anion Gap 16 H (3-11) BUN 49 H (6-23) mg/dl Creatinine 1.77 H (0.6-1.2) mg/dl Est Cr Clr Drug Dosing 20.0 ml/min eGFR 29.06 BUN/Creatinine Ratio 27.7 H (10-20) Glucose 261 H (70-99(Fasting)) mg/dl POC Glucose 193 H 146 H (70-99) mg/dl Calcium 7.8 L (8.6-10.3) mg/dl Total Bilirubin 0.4 (0.2-1.0) mg/dl AST 22 (13-39) U/L ALT 8 (7-52) U/L Alkaline Phosphatase 65 (34-104) U/L Troponin I High Sens 7.3 (0-14) pg/ml Total Protein 5.2 L (6.0-8.3) gm/dl Albumin 3.5 (3.4-5.0) gm/dl Globulin 1.7 L (2.5-4.0) gm/dl Albumin/Globulin Ratio 2.1 H (0.9-2) TSH 1.114 (0.300-4.500) uIu/ml Urine Color Urine Appearance (Clear) Urine pH (4.5-7.5) Ur Specific [place] (1.000-1.030) Urine Protein (Negative) Urine Glucose (UA) (Negative) Urine Ketones (Negative) Urine Blood (Negative) Urine Nitrite (Negative) Urine Bilirubin (Negative) Urine Urobilinogen (Negative) Ur Leukocyte Esterase (Negative) Urine Comment 06/04/25 Range/Units 18:40 WBC (4.8-10.8) K/ul RBC (4.20-5.40) M/uL Hgb (12.0-16.0) g/dl Hct (37.0-47.0) % MCV (80.0-100.0) fL MCH (25.0-34.0) pg MCHC (32.0-36.0) g/dL RDW Std Deviation (36.4-46.3) fL RDW Coeff of Meena (11.5-14.5) % Plt Count (130-400) K/uL MPV (9.4-12.4) fL Immature Gran % (Auto) % Neut % (Auto) % Lymph % (Auto) % [place] % (Auto) % Eos % (Auto) % Baso % (Auto) % Neut # (Auto) (1.40-6.50) K/uL Lymph # (Auto) (1.20-3.40) K/uL [place] # (Auto) (0.11-0.59) K/uL Eos # (Auto) (0.00-0.50) K/uL Baso # (Auto) (0.00-0.20) K/uL Immature Gran # (Auto) (0.01-0.20) K/uL Sodium (136-145) mmol/L Potassium (3.5-5.1) mmol/L Chloride (98-107) mmol/L Carbon Dioxide (21-32) mmol/L Anion Gap (3-11) BUN (6-23) mg/dl Creatinine (0.6-1.2) mg/dl Est Cr Clr Drug Dosing ml/min eGFR BUN/Creatinine Ratio (10-20) Glucose (70-99(Fasting)) mg/dl POC Glucose (70-99) mg/dl Calcium (8.6-10.3) mg/dl Total Bilirubin (0.2-1.0) mg/dl AST (13-39) U/L ALT (7-52) U/L Alkaline Phosphatase (34-104) U/L Troponin I High Sens (0-14) pg/ml Total Protein (6.0-8.3) gm/dl Albumin (3.4-5.0) gm/dl Globulin (2.5-4.0) gm/dl Albumin/Globulin Ratio (0.9-2) TSH (0.300-4.500) uIu/ml Urine Color Yellow Urine Appearance Clear (Clear) Urine pH 5.5 (4.5-7.5) Ur Specific [place] 1.010 (1.000-1.030) Urine Protein Negative (Negative) Urine Glucose (UA) Negative (Negative) Urine Ketones Negative (Negative) Urine Blood Negative (Negative) Urine Nitrite Negative (Negative) Urine Bilirubin Negative (Negative) Urine Urobilinogen Negative (Negative) Ur Leukocyte Esterase Negative (Negative) Urine Comment Administered Medications Sodium Chloride (Nss) 1,000 mls @ 125 mls/hr IV .Q8H VANDANA Stop: 06/07/25 13:29 Last Admin: 06/04/25 15:27 Dose: 125 mls/hr Documented By: ARGELIA Discontinued Medications Dextrose (Dextrose 50% 50 Ml Syringe) Confirm Administered Dose 50 ml IV .STK- MED ONE Stop: 06/04/25 13:15 Last Admin: 06/04/25 13:22 Dose: Not Given Documented By: ARGELIA Dextrose (Dextrose 50% 50 Ml Syringe) 50 ml IV NOW ONE Stop: 06/04/25 13:19 Last Admin: 06/04/25 13:18 Dose: 50 ml Documented By: ARGELIA Sodium Chloride (Nss) 1,000 mls @ 999 mls/hr IV .Q1H1M ONE Stop: 06/04/25 14:18 Last Infusion: 06/04/25 14:52 Dose: Infused Documented By: Admin: 06/04/25 13:49 Dose: 999 mls/hr Documented By: SANJIV Ondansetron HCl (Ondansetron Inj 2 Mg/Ml 2 Ml Vial) 4 mg IV NOW STA Stop: 06/04/25 13:28 Last Admin: 06/04/25 13:49 Dose: 4 mg Documented By: SANJIV Imaging Data Radiologist's Impression: Chest X-Ray 06/04/25 13:14 XR chest 1V portable CLINICAL HISTORY: weakness COMPARISON STUDY: 08/17/2020 FINDINGS: Heart size and pulmonary vasculature are normal. Stable hyperexpanded lungs. No consolidation or pleural effusion. No pneumothorax. IMPRESSION: No acute findings. ACT 112: Negative or not required by law. Electronically signed by: iWliam Jenkins M.D. 06/04/2025 1:[address] 06/04/25 13:27 CT head without contrast History: Trauma Comparison: Vision changes Technique: Using multidetector thin collimation helical acquisition technique, axial, coronal and sagittal CT images from the skull base to the vertex were obtained without intravenous contrast. Dose reduction techniques were achieved by using automatic exposure control and/or adjustment of mA and/or kV according to patient size and/or use of iterative reconstruction technique. Findings: No intracranial hemorrhage, mass-effect, or midline shift. The ventricles are proportionate to the cerebral sulci. The polo to white matter differentiation of the cerebral hemispheres is preserved. The basal cisterns are patent. Moderate cerebral atrophy. The visualized paranasal sinuses are clear. Mastoid air cells are clear. Impression: No acute intracranial pathology. Electronically signed by Carlton Kaiser 06-04-2025 3:28 PM Abdomen/Pelvis CT 06/04/25 14:38 EXAMINATION: CT of the abdomen and pelvis performed without contrast TECHNIQUE: Helical CT images from the lung bases through the symphysis pubis were obtained without contrast. Coronal and sagittal reformatted images were generated at a workstation for further assessment. Dose reduction techniques were achieved by using automatic exposure control and/or adjustment of mA and/or kV according to patient size and/or use of iterative reconstruction technique. COMPARISON: May 28 6024 HISTORY: Abdominal pain. Vomiting FINDINGS: No consolidation in the lower chest. No pleural effusion or pneumothorax. There is no free air. The unenhanced spleen, pancreas and left adrenal gland are unremarkable. Postoperative changes of the right adrenal gland. Partial right-sided nephrectomy. Probable gallbladder sludge. Unremarkable liver. There is an exophytic 1.3 cm lesion of the lateral mid superior pole right kidney, is hyperattenuating and not significantly changed from prior. Significant interval decrease in an area of fluid adjacent to the suture margin now measuring 0.7 cm, previously 2.0 cm. Left-sided renal cyst redemonstrated, there is no hydronephrosis. Atherosclerosis of the aorta. No bowel obstruction or bowel wall thickening identified. Soft tissues are within normal limits. Surgical clips within the left abdomen. No acute fracture or destructive bone lesion. IMPRESSION: 1. No acute intra-abdominal process. 2. Stable postoperative changes compatible with right adrenalectomy and right partial nephrectomy. 3. Stable and resolving cystic structures and areas of fluid adjacent to the right renal surgical margin, as above. Electronically signed by Carlton Kaiser 06-04-2025 3:34 PM Discharge Plan Visit Data Chief Complaint: Illness ED Provider: Julien Jimenez Discharge Problem: Nausea, vomiting, and diarrhea, Acute dehydration, Hypoglycemia Patient Disposition: Admitted As Inpatient Condition: Fair Forms Stand Alone Forms: My [facility] Prescriptions Prescriptions: No Action allopurinol 100 mg tablet 100 mg PO QAM Qty: 90 3RF Prevnar 20 (PF) 0.5 mL syringe 0.5 ml IM ONE Qty: 0.5 0RF telmisartan 20 mg tablet 20 mg PO QAM Qty: 90 3RF indapamide 1.25 mg tablet 1.25 mg PO QAM Qty: 90 3RF amlodipine 2.5 mg tablet 2.5 mg PO QAM Qty: 90 3RF pantoprazole 40 mg tablet,delayed release (DR/EC) 40 mg PO DAILY Qty: 90 3RF atorvastatin 40 mg tablet 40 mg PO QPM Qty: 90 3RF ferrous sulfate 325 mg (65 mg iron) tablet,delayed release (DR/EC) 325 mg PO DAILY cholecalciferol (vitamin D3) 50 mcg (2,000 unit) capsule 4,000 unit PO DAILY cetirizine 10 mg tablet 10 mg PO QAM epinephrine 0.3 mg/0.3 mL auto-injector 0.3 mg IM Q4H PRN (Reason: anaphylaxis) Qty: 2 2RF Referrals Referrals: Aisha Beltran MD [Primary Care Provider] -
[2025-06-04] MEDS: LACTATED RINGER'S 1,000 ML IV SCH (20:32)
[2025-06-04] MEDS: HEPARIN SOD 5,000 UNIT/0.5 ML VIAL SQ SCH (21:46)
[2025-06-04 21:49] LABS: Hematocrit (blood only) 31.3 % (37.0-47.0); Hemoglobin 10.1 g/dl (12.0-16.0); Mean Corpuscular Hemoglobin 32.7 pg (25.0-34.0); Mean Corpuscular Volume 101.3 fL (80.0-100.0); Platelet Count 293 K/uL (130-400); RDW Standard Deviation 52.7 fL (36.4-46.3); Red Blood Count 3.09 M/uL (4.20-5.40); White Blood Count 9.26 K/ul (4.8-10.8)
[2025-06-04 22:03] LABS: Alanine Aminotransferase 10.0 U/L (7-52); Albumin Globulin Ratio 1.5 (0.9-2); Alkaline Phosphatase 74.0 U/L (34-104); Anion Gap 12.0 (3-11); Bilirubin,Total 0.6 mg/dl (0.2-1.0); Blood Urea Nitrogen 43.0 mg/dl (6-23); Calcium 7.8 mg/dl (8.6-10.3); Carbon Dioxide 15.0 mmol/L (21-32); Chloride 111.0 mmol/L (98-107); Creatinine Clr Calc Pharmacy 19.0 ml/min; Globulin 2.4 gm/dl (2.5-4.0); Glucose 105.0 mg/dl (70-99(Fasting)); Magnesium 1.0 mg/dl (1.7-2.4); Potassium 4.5 mmol/L (3.5-5.1); Sodium 138.0 mmol/L (136-145); Total Protein 6.1 gm/dl (6.0-8.3)
[2025-06-05] MEDS: MAGNESIUM SULFATE / D5W 1 GM/100 ML BAG IV ONE ×3 (07:42→17:38)
[2025-06-05] MEDS: FERROUS SULFATE 325 MG TAB PO SCH (07:42)
[2025-06-05 08:06] LABS: Hematocrit (blood only) 29.2 % (37.0-47.0); Hemoglobin 9.5 g/dl (12.0-16.0); Mean Corpuscular Hemoglobin 33.3 pg (25.0-34.0); Mean Corpuscular Volume 102.5 fL (80.0-100.0); Platelet Count 272 K/uL (130-400); RDW Standard Deviation 54.4 fL (36.4-46.3); Red Blood Count 2.85 M/uL (4.20-5.40); White Blood Count 6.46 K/ul (4.8-10.8)
[2025-06-05 08:33] LABS: Alanine Aminotransferase 9.0 U/L (7-52); Albumin Globulin Ratio 2.0 (0.9-2); Alkaline Phosphatase 70.0 U/L (34-104); Anion Gap 12.0 (3-11); Bilirubin,Total 0.6 mg/dl (0.2-1.0); Blood Urea Nitrogen 41.0 mg/dl (6-23); Calcium 7.9 mg/dl (8.6-10.3); Carbon Dioxide 16.0 mmol/L (21-32); Chloride 112.0 mmol/L (98-107); Creatinine Clr Calc Pharmacy 20.5 ml/min; Globulin 1.8 gm/dl (2.5-4.0); Glucose 53.0 mg/dl (70-99(Fasting)); Magnesium 1.0 mg/dl (1.7-2.4); Potassium 4.2 mmol/L (3.5-5.1); Sodium 140.0 mmol/L (136-145); Total Protein 5.4 gm/dl (6.0-8.3)
--- NOTE | 2025-06-05 10:22 | Hospitalist Progress Note ---
Date of Service June 05, 2025 Assessment & Plan (1) H/O partial nephrectomy: (2) H/O partial adrenalectomy: (3) Vitamin D deficiency: (4) Lesion of adrenal gland: (5) Hx of ovarian cancer: (6) Kidney tumor: (7) Hypertension: (8) Hyperlipidemia: (9) Iron deficiency anemia: (10) Gastroenteritis: Plan: 80 female history RCC And pheochromocytoma status post partial right nephrectomy and partial adrenalectomy CKD gout hearing loss chronic EtOH in the past smoking hypertension RICHARDSON angioedema and anaphylaxis in the past Arthritis history ovarian cancer Status post hysterectomy who presents with nausea vomiting Anorexia inability to tolerate p.o. abdominal discomfort diarrhea generalized weakness over the past couple days. Also presented with confusion and double vision. Worked up in the ED with impression of gastroenteritis with severe dehydration and hypokalemia. Also noted to have blood sugar of 24 was given an amp of dextrose for this with no further episodes of hypoglycemia. At time of evaluation, patient has returned to baseline Confusion seems to have resolved. tells me she feels back to normal. Denies any history of diabetes not on insulin therapy. CT abdomen pelvis negative for acute process no reports of insulinoma or other abnormalities. Acute gastroenteritis Supportive care Advance diet as tolerated IV fluids Follow stool studies Monitor low bicarb in setting of Diarrhea Hypoglycemia in setting of poor p.o. intake Hypoglycemic protocol as needed Acute metabolic encephalopathy resolved Delirium precautions PVCs/fusion complexes Telemetry K greater than 4 mag greater than 2 Acute on chronic anemia History RICHARDSON. Iron supplements Monitor. Hb goal greater than 7 CKD Avoid nephrotoxic meds Monitor bicarb. Suspect will benefit from bicarb therapy Added to regimen close outpatient follow-up DVT prophylaxis Full code Disposition Discharge home once electrolytes stabilize, if no further hypoglycemic episodes and tolerates diet Admission and Anticipated Discharge Date Admission Date: June 04, 2025 Subjective She feels much better LURD more discussed with RN who is advancing diet. Tells me she is walking to the bathroom [id number] no issues. No nausea vomiting abdominal pain or further diarrhea. No reports on telemetry of PVCs or other arrhythmias per RN Blood sugar 53 notified by RN. [id number] WNL. No reports of symptoms. Monitoring Bicarb remains stable. Creatinine remained stable. Magnesium 1 replating and rechecking this afternoon Review of Systems Review of Systems: All systems reviewed & are unremarkable except as noted in Subjective Physical Exam Constitutional: + thin; not in distress Eyes: PERRL, conjunctivae normal, anicteric sclerae ENMT: external ear and nose normal, oropharynx normal Neck: trachea midline, no thyromegaly Respiratory: normal respiratory effort, lungs clear to auscultation Cardiovascular: RRR, no murmur, no edema Gastrointestinal (Abdomen): normal bowel sounds, soft, nontender, no hepato splenomegaly Skin: no rashes, warm and dry Neurologic: Speech / Cognition: normal speech and normal cognition Psychiatric: Affect: euthymic affect Results & Data Results & Data Vital Signs (Past 12 Hours) Vital Signs Temp Pulse Pulse Resp BP Pulse Ox O2 Del Method 06/05/25 07:50 36.8 C 90 16 165/88 H 98 Room Air 06/05/25 04:31 36.7 C 88 17 156/79 H 99 Room Air 06/05/25 00:11 37.0 C 97 H 18 164/80 H 98 Room Air 06/04/25 22:32 106 H Laboratory Results Abnormal Labs 06/04/25 06/04/25 06/04/25 13:21 13:38 15:41 WBC 11.91 H RBC 2.74 L Hgb 9.1 L Hct 27.7 L MCV 101.1 H RDW Std Deviation 52.5 H Neut # (Auto) 9.37 H Sodium 135 L Chloride Carbon Dioxide 12 L Anion Gap 16 H BUN 49 H Creatinine 1.77 H BUN/Creatinine Ratio 27.7 H Glucose 261 H POC Glucose 193 H 146 H Calcium 7.8 L Magnesium Troponin I High Sens Total Protein 5.2 L Globulin 1.7 L Albumin/Globulin Ratio 2.1 H 06/04/25 06/05/25 06/05/25 21:19 02:14 06:50 WBC RBC 3.09 L 2.85 L Hgb 10.1 L 9.5 L Hct 31.3 L 29.2 L MCV 101.3 H 102.5 H RDW Std Deviation 52.7 H 54.4 H Neut # (Auto) Sodium Chloride 111 H 112 H Carbon Dioxide 15 L 16 L Anion Gap 12 H 12 H BUN 43 H 41 H Creatinine 1.83 H 1.70 H BUN/Creatinine Ratio 23.5 H 24.1 H Glucose 105 H 53 L* POC Glucose Calcium 7.8 L 7.9 L Magnesium 1.0 L 1.0 L Troponin I High Sens 21.6 H D 20.5 H Total Protein 5.4 L Globulin 2.4 L 1.8 L Albumin/Globulin Ratio 06/05/25 08:39 WBC RBC Hgb Hct MCV RDW Std Deviation Neut # (Auto) Sodium Chloride Carbon Dioxide Anion Gap BUN Creatinine BUN/Creatinine Ratio Glucose POC Glucose 183 H Calcium Magnesium Troponin I High Sens Total Protein Globulin Albumin/Globulin Ratio Diagnostic Findings Chest X-Ray 06/04/25 13:14 XR chest 1V portable CLINICAL HISTORY: weakness COMPARISON STUDY: 08/17/2020 FINDINGS: Heart size and pulmonary vasculature are normal. Stable hyperexpanded lungs. No consolidation or pleural effusion. No pneumothorax. IMPRESSION: No acute findings. ACT 112: Negative or not required by law. Electronically signed by: Wiliam Jenkins M.D. 06/04/2025 1:[address] 06/04/25 13:27 CT head without contrast History: Trauma Comparison: Vision changes Technique: Using multidetector thin collimation helical acquisition technique, axial, coronal and sagittal CT images from the skull base to the vertex were obtained without intravenous contrast. Dose reduction techniques were achieved by using automatic exposure control and/or adjustment of mA and/or kV according to patient size and/or use of iterative reconstruction technique. Findings: No intracranial hemorrhage, mass-effect, or midline shift. The ventricles are proportionate to the cerebral sulci. The polo to white matter differentiation of the cerebral hemispheres is preserved. The basal cisterns are patent. Moderate cerebral atrophy. The visualized paranasal sinuses are clear. Mastoid air cells are clear. Impression: No acute intracranial pathology. Electronically signed by Carlton Kaiser 06-04-2025 3:28 PM Abdomen/Pelvis CT 06/04/25 14:38 EXAMINATION: CT of the abdomen and pelvis performed without contrast TECHNIQUE: Helical CT images from the lung bases through the symphysis pubis were obtained without contrast. Coronal and sagittal reformatted images were generated at a workstation for further assessment. Dose reduction techniques were achieved by using automatic exposure control and/or adjustment of mA and/or kV according to patient size and/or use of iterative reconstruction technique. COMPARISON: May 28 6024 HISTORY: Abdominal pain. Vomiting FINDINGS: No consolidation in the lower chest. No pleural effusion or pneumothorax. There is no free air. The unenhanced spleen, pancreas and left adrenal gland are unremarkable. Postoperative changes of the right adrenal gland. Partial right-sided nephrectomy. Probable gallbladder sludge. Unremarkable liver. There is an exophytic 1.3 cm lesion of the lateral mid superior pole right kidney, is hyperattenuating and not significantly changed from prior. Significant interval decrease in an area of fluid adjacent to the suture margin now measuring 0.7 cm, previously 2.0 cm. Left-sided renal cyst redemonstrated, there is no hydronephrosis. Atherosclerosis of the aorta. No bowel obstruction or bowel wall thickening identified. Soft tissues are within normal limits. Surgical clips within the left abdomen. No acute fracture or destructive bone lesion. IMPRESSION: 1. No acute intra-abdominal process. 2. Stable postoperative changes compatible with right adrenalectomy and right partial nephrectomy. 3. Stable and resolving cystic structures and areas of fluid adjacent to the right renal surgical margin, as above. Electronically signed by Carlton Kaiser 06-04-2025 3:34 PM PG Care Time/CCT Total # of Minutes Spent Total Time Spent with Patient: Total time spent is greater than 50% in coordination of care (as documented) at patient's floor/unit and/or counseling patient: Coding Level of Care Code 30711 SUB INP/OBS CARE 2/35MIN Diagnoses H/O partial nephrectomy Z90.5 H/O partial adrenalectomy E89.6 Vitamin D deficiency E55.9 Lesion of adrenal gland E27.9 Hx of ovarian cancer Z85.43 Kidney tumor D49.519 Hypertension I10 Hyperlipidemia E78.5 Iron deficiency anemia D50.9 Gastroenteritis K52.9
[2025-06-05] MEDS: SODIUM BICARBONATE 650 MG TAB PO SCH (20:30)
--- NOTE | 2025-06-06 05:37 | Electrocardiogram Report ---
Test Reason : Blood Pressure : */* mmHG Vent. Rate : 113 BPM Atrial Rate : 113 BPM P-R Int : 138 ms QRS Dur : 80 ms QT Int : 344 ms P-R-T Axes : * -5 -20 degrees QTcB Int : 471 ms Poor data quality, interpretation may be adversely affected Sinus tachycardia with Premature ventricular complexes or Fusion complexes Low voltage QRS When compared with ECG of 16-Jun-2023 23:53, Fusion complexes are now Present Premature ventricular complexes are now Present Confirmed by Carlo Bartlett ([id number]) on 06/06/2025 5:37:27 AM Referred By: REFERRED SELF Confirmed By: Carlo Bartlett
[2025-06-06 07:21] LABS: Hematocrit (blood only) 30.0 % (37.0-47.0); Hemoglobin 9.8 g/dl (12.0-16.0); Mean Corpuscular Hemoglobin 32.8 pg (25.0-34.0); Mean Corpuscular Volume 100.3 fL (80.0-100.0); Platelet Count 244 K/uL (130-400); RDW Standard Deviation 51.9 fL (36.4-46.3); Red Blood Count 2.99 M/uL (4.20-5.40); White Blood Count 6.57 K/ul (4.8-10.8)
[2025-06-06 07:42] LABS: Alanine Aminotransferase 7 U/L (7-52); Albumin Globulin Ratio 1.8 (0.9-2); Alkaline Phosphatase 71 U/L (34-104); Anion Gap 7 (3-11); Bilirubin,Total 0.5 mg/dl (0.2-1.0); Blood Urea Nitrogen 31 mg/dl (6-23); Calcium 8.4 mg/dl (8.6-10.3); Carbon Dioxide 21 mmol/L (21-32); Chloride 110 mmol/L (98-107); Creatinine Clr Calc Pharmacy 21.0 ml/min; Globulin 2.0 gm/dl (2.5-4.0); Glucose 104 mg/dl (70-99(Fasting)); Magnesium 1.5 mg/dl (1.7-2.4); Sodium 138 mmol/L (136-145); Total Protein 5.5 gm/dl (6.0-8.3)
[2025-06-06] MEDS: LOSARTAN POTASSIUM 25 MG TAB PO SCH (08:08)
[2025-06-06 09:28] LABS: Potassium 3.7 mmol/L (3.5-5.1)
--- NOTE | 2025-06-06 11:42 | Hospitalist Progress Note ---
Date of Service June 06, 2025 Assessment & Plan (1) H/O partial nephrectomy: (2) H/O partial adrenalectomy: (3) Vitamin D deficiency: (4) Lesion of adrenal gland: (5) Hx of ovarian cancer: (6) Kidney tumor: (7) Hypertension: (8) Hyperlipidemia: (9) Iron deficiency anemia: (10) Gastroenteritis: Plan: 80 female history RCC And pheochromocytoma status post partial right nephrectomy and partial adrenalectomy CKD gout hearing loss chronic EtOH in the past smoking hypertension RICHARDSON angioedema and anaphylaxis in the past Arthritis history ovarian cancer Status post hysterectomy who presents with nausea vomiting Anorexia inability to tolerate p.o. abdominal discomfort diarrhea generalized weakness over the past couple days. Also presented with confusion and double vision. Worked up in the ED with impression of gastroenteritis with severe dehydration and hypokalemia. Also noted to have blood sugar of 24 was given an amp of dextrose for this with no further episodes of hypoglycemia. At time of evaluation, patient has returned to baseline Confusion seems to have resolved. tells me she feels back to normal. Denies any history of diabetes not on insulin therapy. CT abdomen pelvis negative for acute process no reports of insulinoma or other abnormalities. Acute gastroenteritis Supportive care Diet advanced to regular IV fluids taper to PO intake/hydration Stool studies NTD Monitor low bicarb in setting of Diarrhea Hypoglycemia in setting of poor p.o. intake Hypoglycemic protocol as needed And encourage p.o. intake Suspect malabsorption from gastroenteritis May be contributing Ectopy/NSVT K greater than 4 mag greater than 2 Acute metabolic encephalopathy resolved Delirium precautions PVCs/fusion complexes Telemetry K greater than 4 mag greater than 2 Acute on chronic anemia History RICHARDSON. Iron supplements Monitor. Hb goal greater than 7 CKD Avoid nephrotoxic meds Monitor bicarb. Suspect will benefit from bicarb therapy Added to regimen close outpatient follow-up Hypertension Norvasc increased DVT prophylaxis Full code Disposition Discharge home once electrolytes stabilize, NSVT's resolved and if no further hypoglycemic episodes Admission and Anticipated Discharge Date Admission Date: June 04, 2025 Subjective Doing well unchanged Eager to go home. Eating and ambulating no issues. Unclear how much she is eating. Unfortunately RN tells me patient's blood sugar dropped again once this morning to 50. Monitoring. NSVT 6 beats on monitor. No other events per RN on telemetry Replating K and magnesium Review of Systems Review of Systems: All systems reviewed & are unremarkable except as noted in Subjective Physical Exam Constitutional: + thin; not in distress Eyes: PERRL, conjunctivae normal, anicteric sclerae ENMT: external ear and nose normal, oropharynx normal Neck: trachea midline, no thyromegaly Respiratory: normal respiratory effort, lungs clear to auscultation Cardiovascular: RRR, no murmur, no edema Gastrointestinal (Abdomen): normal bowel sounds, soft, nontender, no hepatosplenomegaly Skin: no rashes, warm and dry Neurologic: Speech / Cognition: normal speech and normal cognition Psychiatric: Affect: euthymic affect Results & Data Results & Data Vital Signs (Past 12 Hours) Vital Signs Temp Pulse Pulse Resp BP Pulse Ox O2 Del Method 06/06/25 11:07 36.6 C 84 18 159/88 H 97 Room Air 06/06/25 09:30 Room Air 06/06/25 07:42 85 06/06/25 07:27 36.6 C 78 19 166/89 H 99 Room Air 06/06/25 03:00 36.4 C L 88 18 156/80 H 95 Room Air Laboratory Results Abnormal Labs 06/04/25 06/04/25 06/04/25 13:21 13:38 15:41 WBC 11.91 H RBC 2.74 L Hgb 9.1 L Hct 27.7 L MCV 101.1 H RDW Std Deviation 52.5 H Neut # (Auto) 9.37 H Sodium 135 L Chloride Carbon Dioxide 12 L Anion Gap 16 H BUN 49 H Creatinine 1.77 H BUN/Creatinine Ratio 27.7 H Glucose 261 H POC Glucose 193 H 146 H Calcium 7.8 L Magnesium Troponin I High Sens Total Protein 5.2 L Globulin 1.7 L Albumin/Globulin Ratio 2.1 H 06/04/25 06/05/25 06/05/25 21:19 02:14 06:50 WBC RBC 3.09 L 2.85 L Hgb 10.1 L 9.5 L Hct 31.3 L 29.2 L MCV 101.3 H 102.5 H RDW Std Deviation 52.7 H 54.4 H Neut # (Auto) Sodium Chloride 111 H 112 H Carbon Dioxide 15 L 16 L Anion Gap 12 H 12 H BUN 43 H 41 H Creatinine 1.83 H 1.70 H BUN/Creatinine Ratio 23.5 H 24.1 H Glucose 105 H 53 L* POC Glucose Calcium 7.8 L 7.9 L Magnesium 1.0 L 1.0 L Troponin I High Sens 21.6 H D 20.5 H Total Protein 5.4 L Globulin 2.4 L 1.8 L Albumin/Globulin Ratio 06/05/25 06/05/25 06/05/25 08:39 09:58 14:54 WBC RBC Hgb Hct MCV RDW Std Deviation Neut # (Auto) Sodium Chloride Carbon Dioxide Anion Gap BUN Creatinine BUN/Creatinine Ratio Glucose POC Glucose 183 H Calcium Magnesium 1.6 L Troponin I High Sens 16.3 H D Total Protein Globulin Albumin/Globulin Ratio 06/05/25 06/06/25 19:56 06:56 WBC RBC 2.99 L Hgb 9.8 L Hct 30.0 L MCV 100.3 H RDW Std Deviation 51.9 H Neut # (Auto) Sodium Chloride 110 H Carbon Dioxide Anion Gap BUN 31 H Creatinine 1.68 H BUN/Creatinine Ratio Glucose 104 H POC Glucose Calcium 8.4 L Magnesium 1.5 L Troponin I High Sens 14.9 H Total Protein 5.5 L Globulin 2.0 L Albumin/Globulin Ratio PG Care Time/CCT Total # of Minutes Spent Total Time Spent with Patient: Total time spent is greater than 50% in coordination of care (as documented) at patient's floor/unit and/or counseling patient: Coding Level of Care Code 86228 SUB INP/OBS CARE 2/35MIN Diagnoses H/O partial nephrectomy Z90.5 H/O partial adrenalectomy E89.6 Vitamin D deficiency E55.9 Lesion of adrenal gland E27.9 Hx of ovarian cancer Z85.43 Kidney tumor D49.519 Hypertension I10 Hyperlipidemia E78.5 Iron deficiency anemia D50.9 Gastroenteritis K52.9
[2025-06-06] MEDS: MAGNESIUM SULFATE / D5W 1 GM/100 ML BAG IV ONE (12:31)
[2025-06-06] MEDS: POTASSIUM CHLORIDE CRTAB 20 MEQ TABCR PO STA (12:31)
[2025-06-06 19:27] VITALS: O2SAT 97
[2025-06-06 23:43] VITALS: RESP 18
[2025-06-07 03:25] VITALS: TEMP 98.4
[2025-06-07 07:29] LABS: Hematocrit (blood only) 27.0 % (37.0-47.0); Hemoglobin 9.0 g/dl (12.0-16.0); Mean Corpuscular Hemoglobin 33.0 pg (25.0-34.0); Mean Corpuscular Volume 98.9 fL (80.0-100.0); Platelet Count 239 K/uL (130-400); RDW Standard Deviation 52.6 fL (36.4-46.3); Red Blood Count 2.73 M/uL (4.20-5.40); White Blood Count 6.48 K/ul (4.8-10.8)
[2025-06-07 07:49] VITALS: BP 142/94; PULSE 90
[2025-06-07 08:05] LABS: Alanine Aminotransferase 6.0 U/L (7-52); Albumin Globulin Ratio 1.6 (0.9-2); Alkaline Phosphatase 61.0 U/L (34-104); Anion Gap 4.0 (3-11); Bilirubin,Total 0.4 mg/dl (0.2-1.0); Blood Urea Nitrogen 24.0 mg/dl (6-23); Calcium 8.1 mg/dl (8.6-10.3); Carbon Dioxide 25.0 mmol/L (21-32); Chloride 111.0 mmol/L (98-107); Creatinine Clr Calc Pharmacy 22.5 ml/min; Globulin 1.9 gm/dl (2.5-4.0); Glucose 96.0 mg/dl (70-99(Fasting)); Magnesium 1.3 mg/dl (1.7-2.4); Potassium 4.0 mmol/L (3.5-5.1); Sodium 140.0 mmol/L (136-145); Total Protein 5.0 gm/dl (6.0-8.3)
--- NOTE | 2025-06-07 10:35 | Discharge Summary ---
Discharge Summary Date of Service June 07, 2025 Principal Dx & Hospital Course #1 = Principal Diagnosis (1) H/O partial nephrectomy: (2) H/O partial adrenalectomy: (3) Vitamin D deficiency: (4) Lesion of adrenal gland: (5) Hx of ovarian cancer: (6) Kidney tumor: (7) Hypertension: (8) Hyperlipidemia: (9) Iron deficiency anemia: (10) Gastroenteritis: Subjective: Doing very well in good spirits really wants to go home. Eating and ambulating. Tells me she chronically has not been eating much her baseline Oral intake is maybe a meal to a meal and a half a day.Encouraged adequate p.o. intake and nutrition. We discussed how her blood sugars are probably chronically low as well as her electrolytes She verbalized understanding. We discussed risks of arrhythmia morbidity and . She will have her electrolytes rechecked in a few days Discussed with RN no events on telemetry no further hypoglycemic episodes Assessment and plan: 80 female history RCC And pheochromocytoma status post partial right nephrectomy and partial adrenalectomy CKD gout hearing loss chronic EtOH in the past smoking hypertension RICHARDSON angioedema and anaphylaxis in the past Arthritis history ovarian cancer Status post hysterectomy who presents with nausea vomiting Anorexia inability to tolerate p.o. abdominal discomfort diarrhea generalized weakness over the past couple days. Also presented with confusion and double vision. Worked up in the ED with impression of gastroenteritis with severe dehydration and hypokalemia. Also noted to have blood sugar of 24 was given an amp of dextrose for this with no further episodes of hypoglycemia. At time of evaluation, patient has returned to baseline Confusion seems to have resolved. tells me she feels back to normal. Denies any history of diabetes not on insulin therapy. CT abdomen pelvis negative for acute process no reports of insulinoma or other abnormalities. Acute gastroenteritis Supportive care Diet advanced to regular IV fluids taper to PO intake/hydration Stool studies NTD Monitor low bicarb in setting of Diarrhea Hypoglycemia in setting of poor p.o. intake Hypoglycemic protocol as needed And encourage p.o. intake Suspect malabsorption from gastroenteritis May be contributing Ectopy/NSVT K greater than 4 mag greater than 2 Acute metabolic encephalopathy resolved Delirium precautions PVCs/fusion complexes Telemetry K greater than 4 mag greater than 2 Acute on chronic anemia History RICHARDSON. Iron supplements Monitor. Hb goal greater than 7 CKD Avoid nephrotoxic meds Monitor bicarb. Suspect will benefit from bicarb therapy Added to regimen close outpatient follow-up Hypertension Norvasc increased DVT prophylaxis Full code Disposition Discharge home once electrolytes stabilize, NSVT's resolved and if no further hypoglycemic episodes Admission HPI Per Admitting Provider 80 female history RCC And pheochromocytoma status post partial right nephrectomy and partial adrenalectomy CKD gout hearing loss chronic EtOH in the past smoking hypertension RICHARDSON angioedema and anaphylaxis in the past Arthritis history ovarian cancer Status post hysterectomy who presents with nausea vomiting Anorexia inability to tolerate p.o. abdominal discomfort diarrhea generalized weakness over the past couple days. Also presented with confusion and double vision. Worked up in the ED with impression of gastroenteritis with severe dehydration and hypokalemia. Also noted to have blood sugar of 24 was given an amp of dextrose for this with no further episodes of hypoglycemia. At time of evaluation, patient has returned to baseline Confusion seems to have resolved. tells me she feels back to normal. Denies any history of diabetes not on insulin therapy. CT abdomen pelvis negative for acute process no reports of insulinoma or other abnormalities. At time of evaluation denies nausea vomiting abdominal pain headache vision change lightheadedness double vision numbness tingling weakness or other neurological symptoms. No chest pain shortness of breath or any other symptoms. At time of this writing documentation from ED physician pending and home med rec pending update Discharge Exam Constitutional + thin; not in distress Eyes PERRL, conjunctivae normal, anicteric sclerae ENMT external ear and nose normal, oropharynx normal Neck trachea midline, no thyromegaly Respiratory normal respiratory effort, lungs clear to auscultation Cardiovascular RRR, no murmur, no edema Gastrointestinal (Abdomen) normal bowel sounds, soft, nontender, no hepatosplenomegaly Skin no rashes, warm and dry Neurologic Speech / Cognition: normal speech and normal cognition Psychiatric Affect: euthymic affect Discharge Plan Discharge Items Patient Disposition: Home - Self-Care Reason For Visit: GASSTROENTERITIS Discharge Diagnosis: Gastroenteritis Condition on Discharge: Fair Activity: Resume your previous activity Non-emergency contact: Primary Care Provider Call non-emergency contact if: you have any medication questions, your symptoms worsen, your pain is concerning for you and you have a fever Follow-up/Referrals: Aisha Beltran MD [Primary Care Provider] - Diet: Heart Healthy Diet Comment: Eat well. Need more nutrition. [id number] magnesium supplements. Addtl Attending Provider Instructions: Follow-up with your primary care doctor in 3 to 5 days. Have your blood work rechecked To monitor electrolytes potassium and magnesium levels Within a few days. As we discussed you are not eating enough need to optimize your nutrition. We suspect your blood sugars are chronically low when not eating much and this was exacerbated with having gastroenteritis. Suspect your electrolytes are always chronically low as well. Pending Studies at Discharge: No Stand-Alone Forms: [facility], Smoking Cessation Medications and DC Order Prescriptions: New sodium bicarbonate 650 mg Tablet 650 mg PO BID Qty: 30 0RF amlodipine 5 mg Tablet 5 mg PO QAM Qty: 30 0RF magnesium 200 mg tablet 200 mg PO DAILY Qty: 30 0RF Continued allopurinol 100 mg tablet 100 mg PO QAM Qty: 90 3RF Prevnar 20 (PF) 0.5 mL syringe 0.5 ml IM ONE Qty: 0.5 0RF telmisartan 20 mg tablet 20 mg PO QAM Qty: 90 3RF indapamide 1.25 mg tablet 1.25 mg PO QAM Qty: 90 3RF pantoprazole 40 mg tablet,delayed release (DR/EC) 40 mg PO DAILY Qty: 90 3RF atorvastatin 40 mg tablet 40 mg PO QPM Qty: 90 3RF ferrous sulfate 325 mg (65 mg iron) tablet,delayed release (DR/EC) 325 mg PO DAILY cholecalciferol (vitamin D3) 50 mcg (2,000 unit) capsule 4,000 unit PO DAILY cetirizine 10 mg tablet 10 mg PO QAM epinephrine 0.3 mg/0.3 mL auto-injector 0.3 mg IM Q4H PRN (Reason: anaphylaxis) Qty: 2 2RF Discontinued amlodipine 2.5 mg tablet 2.5 mg PO QAM Qty: 90 3RF Discharge Orders: Discharge Order (Routine); Ordered 06/07/25 Ordered By: Gurmeet Vasquez Admission Data Admit Date/Time: 06/04/25 17:59 Attending Provider: Gurmeet Vasquez Admit Provider: Gurmeet Vasquez Primary Care Provider: Aisha Beltran Other Providers: Gurmeet Vasquez Hospital Stay Data Consultations 06/04/25 19:15 ED Decision to Admit Stat Diagnostic Imagining Performed 06/04/25 13:27 CT head/brain wo con Stat 06/04/25 14:38 CT Abd and Pelvis [CT abd pelvis wo con] Stat Pending Results Patient Have Any Pending Studies at Discharge: No Discharge Instructions Given to Patient (Per Discharging Provider) Follow-up with your primary care doctor in 3 to 5 days. Have your blood work rechecked To monitor electrolytes potassium and magnesium levels Within a few days. As we discussed you are not eating enough need to optimize your nutrition. We suspect your blood sugars are chronically low when not eating much and this was exacerbated with having gastroenteritis. Suspect your electrolytes are always chronically low as well. Total Time Total Time Spent Total Time Spent (In Minutes): 35 Coding Level of Care Code 96427 INP/OBS DISCH >30 MIN Diagnoses H/O partial nephrectomy Z90.5 H/O partial adrenalectomy E89.6 Vitamin D deficiency E55.9 Lesion of adrenal gland E27.9 Hx of ovarian cancer Z85.43 Kidney tumor D49.519 Hypertension I10 Hyperlipidemia E78.5 Iron deficiency anemia D50.9 Gastroenteritis K52.9
== END 2025-06-07 12:21 | disposition home or self-care (01) | DRG 391 ==
LOC: ED 13:12 → 2S 17:59